=== PATIENT | female | born 1960 | race Caucasian/White ===

== ENCOUNTER 2020-06-22 14:00 | Emergency (ER) | payer SELFPAY ==
[2020-06-22 14:06] VITALS: BP 139/86; PULSE 81; RESP 18; TEMP 36.4; O2SAT 99; BMI 29.5
--- NOTE | 2020-06-22 14:45 | ED_ITS ---
HPI - General Adult General: Chief complaint: General Medical Stated complaint: MOVING LUMP IN LEG Time Seen by Provider: 06/22/20 14:26 History of Present Illness: HPI narrative: This patient is a 59-year-old female who presents today with foot pain. She said she has chronic foot pain but this is something new or different. Yesterday she did a lot of gardening but did not think it was enough to cause her typical foot pain. She woke up during the night about 230 and noted pain and a lump on the medial aspect of her midfoot. She went back to sleep and when she woke up in the morning it was still there and quite painful. She was up on her feet doing some cooking this morning. When she sat down took her shoes off she realized that the swelling had moved up her foot and was now more near her malleolus. She called urgent care and they told her to come to the ER to make sure it was not a blood clot. She does have family history of atherosclerotic disease. Onset (ago): hour(s) (12) Location: left and lower extremity Severity: moderate Quality: burning Pain Consistency: constant Relieving factors: none Exacerbating factors: movement Associated symptoms: Deny dyspnea Review of Systems Resp: Denies: dyspnea GI: Denies: abdominal pain Musc: Reports: extremity pain Neuro: Denies: weakness in extremities PFSH ED PFSH: Social History (Updated 06/22/20 @ 14:12 by Deb Amaro RN) Smoking and tobacco status: never smoked Alcohol intake: never Substance/Drug Use: never Adopted: Yes Physical Exam Const: COMMON NORMALS: no acute distress, patient oriented x3, no limitations and alert GENERAL APPEARANCE: cooperative and comfortable HENMT: HEAD & SCALP: normal to inspection FACE & SINUS: normal facial exam Eye: GENERAL EYE: appearance normal, both eyes and all related structures Neck/C-Spine: COMMON NORMALS: supple and no meningeal signs Chest: COMMONS NORMALS: normal inspection of the chest Resp: COMMON NORMALS: normal respiratory effort and No use of accessory muscles Back/Pelvis: COMMON NORMALS: thoracic and lumbar spine normal to inspection Extremity: GENERAL: Yes normal exam except as noted LEFT LOWER EXTREMITY: Yes foot & digits (There is a tender swollen area below the medial malleolus on the medial surface. There is no heat or redness. The swelling seems to track over the course of the tendons in that area.) Neuro: COMMON NORMALS: patient oriented x3, moves all extremities, no focal motor deficits and no sensory deficits noted SENSORIUM/ORIENTATION: Yes alert MENINGEAL SIGNS: Yes no meningeal signs Psych: COMMON NORMALS: mental status grossly normal, cooperative and normal affect Skin: COMMON NORMALS: no rashes or lesions noted and turgor normal GENERAL SKIN EXAM: no rashes or lesions noted and turgor normal Course ED course: Patient is concerned that this could be a blood clot. I reassured her that this would really not be a place where she could develop a blood clot that would cause that type of swelling and tenderness. I think she may have tendinitis in that area and I recommended ibuprofen and Naprosyn. She said those upset her stomach but we talked about ways to control that. If not she can use Tylenol. We will give her referral to Dr. Cadena. Can have her stay off the foot as much as she needs to to control the pain and to ice, elevate, rest. Vital Signs: Vital signs: Vital Signs Temperature 97.5 F L 06/22/20 14:06 Pulse Rate 81 06/22/20 14:06 Respiratory Rate 18 06/22/20 14:06 Blood Pressure 139/86 06/22/20 14:06 Pulse Oximetry 99 06/22/20 14:06 Discharge Plan Discharge Patient Disposition: Home Clinical Impression: Foot pain, left, Tendinitis of ankle or foot Condition: Stable Prescriptions: No Action Glucosamine 500 mg Tablet 500 mg PO DAILY RF: 0 Vitamin C 500 mg Tablet 500 mg PO DAILY RF: 0 ginseng 250 mg Capsule 250 mg PO DAILY RF: 0 Discharge Orders: Discharge Order (Routine); Ordered 06/22/20 Ordered By: Rose Gong Referrals: Gerardo Cadena DPM [Physician] - 4-7 days Discharge Diet: Usual diet Discharge Activity: Limit activity as instructed Patient Instructions: Tendinitis (ED) Activity Restrictions/Additional Instructions: Ibuprofen or naproxen will help with the swelling and pain in your foot. If you take them with food, and/or also take prilosec daily while on those medicines, a short course should not irritate your stomach too much. Limit activity - meaning ambulate only when your are not having pain. Otherwise, rest, ice and elevate. Follow up with Dr. Cadena for further management. Coding Level of Care Code ED Conservation Or Heritage Architect for Gary Diez
[2020-06-22 15:10] VITALS: BP 149/96; RESP 18; O2SAT 97
--- NOTE | 2020-06-23 12:43 | DCPLANNER ---
Addendum entered by Pratima Brown 06/23/20 13:43: Pat from ortho called piano case maker stating that she was unable to reach patient about appointment information. manager multimedia called patient, spoke with patient about the follow up appointment. Patient stated that she does not have insurance, she is not going to the appointment, she does not have transportation. manager multimedia told patient that piano case maker would cancel the appointment. manager multimedia called the ortho clinic, spoke with Pat and cancelled the appointment. Original Note: manager multimedia had message to schedule a follow up appointment for patient with ortho. manager multimedia called the ortho clinic spoke with Pat, gave clinic patients information. manager multimedia was told that patients information would be printed and reviewed. Clinic will call patient with appointment information.
== END 2020-06-22 15:13 | disposition home or self-care (01) ==
PROVIDERS: Emergency Provider Emergency Medicine
DX: M77.9 Enthesopathy, unspecified (principal)
CPT/HCPCS: 12345; 99281

== ENCOUNTER 2021-06-03 14:51 | Emergency (ER) | payer MEDICAID, SELFPAY ==
[2021-06-03 15:11] VITALS: BP 147/114; PULSE 83; RESP 15; TEMP 37; O2SAT 98; BMI 26.6
--- NOTE | 2021-06-03 17:45 | XRR_ITS ---
PROCEDURE INFORMATION: Exam: XR Chest Exam date and time: 06/03/2021 5:45 PM Age: 60 years old Clinical indication: Shortness of breath; Additional info: SOB TECHNIQUE: Imaging protocol: XR of the chest. Views: 1 view. COMPARISON: CT abdomen pelvis wo con [id number] 09/09/2019 7:05 PM FINDINGS: Lungs: Focal airspace opacity with irregular margins right lateral lung base. Symmetric, unremarkable lung volumes. Pleural spaces: Unremarkable. No pleural effusion. No pneumothorax. Heart/Mediastinum: Unremarkable. No cardiomegaly. Bones/joints: Unremarkable. XR/XR chest 1V portable [id number] IMPRESSION: Patchy nonspecific airspace lesion in the posterolateral right lower lobe. This may represent pneumonia, but given the focality radiographic follow-up should be performed to document resolution.
--- NOTE | 2021-06-03 18:18 | ED_ITS ---
HPI - COVID General: Chief Complaint: COVID symptoms Stated Complaint: diff breathing Time Seen by Provider: 06/03/21 18:18 Triage information: Has fever, cough or shortness of breath . Exposure to COVID + person last 14 days History of Present Illness: HPI Narrative: Patient states that she has had Covid symptoms for the last 9 days. She is not been tested. Patient said she had a Covid a month before Covid was officially here over a year ago. Patient said she has had fever chills body aches and shortness of breath. Patient also states that that she has a history of kidney infection started on Bactrim on Sunday called in by their clinic and she feels it could either be Covid or kidney infection. She says she has a history of kidney disease. MD complaint: has COVID symptoms Prior covid testing: no COVID 19 common symptoms: positive fever(s), chills, cough, dyspnea and body aches; negative headache(s), throat pain, nasal congestion, nausea or vomiting COVID 19 other sytmptoms: negative chest pain Onset (ago): day(s) (9) Severity: mild Treatment prior to arrival: other (Patient is on Bactrim) COVID Results: SARS-CoV-2 Antigen (Rapid) Negative (Negative) 06/03/21 18:46 06/03/21 Review of Systems Const: Reports: fever(s), chills and body aches Eyes: Denies: change in vision or blurry vision ENMT: Denies: throat pain or nasal congestion Card: Denies: chest pain or dyspnea on exertion Resp: Reports: dyspnea GI: Denies: abdominal pain, nausea or vomiting : Reports: flank pain, urinary frequency, urinary urgency, urinary hesitancy and dribbling Musc: Denies: extremity pain Skin/Breast: Denies: rash Neuro: Denies: headache(s) Psych: Denies: anxiety or depression Ben/Lymph: Denies: easy bruising PFS ED PFSH: Social History (Updated 06/22/20 @ 14:12 by Deb Amaro RN) Smoking and tobacco status: never smoked Alcohol intake: never Adopted: Yes Physical Exam Const: COMMON NORMALS: no acute distress Resp: COMMON NORMALS: normal respiratory effort, No retractions and No use of accessory muscles EFFORT & INSPECTION: Yes able to speak in complete sentences Psych: COMMON NORMALS: mental status grossly normal Course Vital Signs: Vital signs: Vital Signs Temperature 98.6 F 06/03/21 15:11 Pulse Rate 87 06/03/21 18:45 Respiratory Rate 18 06/03/21 18:45 Blood Pressure 146/79 06/03/21 18:45 Pulse Oximetry 97 06/03/21 18:49 MDM - COVID MDM Narrative: Medical decision making narrative: Discussed lab and radiology findings with patient. Patient agrees to follow-up at [facility] this coming week and repeat chest x-ray and urine. Lab Data: Labs: Lab Results 06/03/21 06/03/21 Range/Units 18:46 18:57 Urine Color Yellow (Yellow) Urine Appearance Hazy A (CLEAR) Urine pH 5 (5-7) Ur Specific Gravit y 1.025 (1.005-1.030) Urine Protein Neg (Negative) Urine Glucose (UA) Norm (Normal) Urine Ketones 1+ H (Negative) Urine Blood 2+ H (Negative) Urine Nitrate Negative (Negative) Urine Bilirubin 1+ H (Negative) Urine Urobilinogen 1 H (Negative) mg/dL Ur Leukocyte Bharti ase 1+ H (Negative) Urine RBC 0-4 H (0-2) /hpf Urine WBC 15-25 H (0-5) /hpf Ur Squamous Epith Cells 25-40 H (0-5) /hpf Amorphous Sediment Not Reportable Urine Bacteria 2+ H (NONE) /hpf SARS-CoV-2 Ag (Rap id) Negative (Negative) COVID Results: SARS-CoV-2 Antigen (Rapid) Negative (Negative) 06/03/21 18:46 06/03/21 Discharge Plan Discharge Patient Disposition: Home Clinical Impression: Abnormal x-ray UTI (urinary tract infection) Qualifiers: Urinary tract infection type: acute cystitis Hematuria presence: with hematuria Qualified Code(s): N30.01 - Acute cystitis with hematuria Condition: Stable Prescriptions: New Zithromax Z-Umesh 250 mg tablet See Rx Instructions .ROUTE .COMPLEX Qty: 6 RF: 0 No Action glucosamine sulfate [Glucosamine] 500 mg Tablet 500 mg PO DAILY RF: 0 ascorbic acid (vitamin C) [Vitamin C] 500 mg Tablet 500 mg PO DAILY RF: 0 Bactrim DS 800-160 mg Tablet 1 tab PO BID RF: 0 Discharge Orders: Discharge ED (Routine); Ordered 06/03/21 Ordered By: Baltazar Gabriel Referrals: Marco Pleitez FNP [Primary Care Provider] - Discharge Diet: Usual diet Discharge Activity: Resume usual activity Patient Instructions: Urinary Tract Infection in Women (ED) Activity Restrictions/Additional Instructions: Follow-up with medical provider as directed. Take medications as prescribed. Return to the ER or your medical provider if condition worsens. Please read and understand discharge instructions. If any questions ask please. Follow-up next week at [facility] in [place] and get a chest x- ray repeated and urinalysis repeated. Coding Level of Care Code ED Government Clerk for Gary Fwd Exam Expanded Problem Focused
[2021-06-03 18:45] VITALS: BP 146/79; PULSE 87; RESP 18; O2SAT 97
[2021-06-03 18:49] VITALS: O2SAT 97
[2021-06-03 19:00] VITALS: BP 135/81; PULSE 90; RESP 18; O2SAT 95
[2021-06-03 19:12] LABS: SARS Covid-2 Antigen Negative (Negative)
[2021-06-03 19:32] LABS: Specific Gravity, Urine 1.025 (1.005-1.030); Urine Appearance Hazy (CLEAR); Urine Color Yellow (Yellow); pH Urine 5 (5-7)
[2021-06-03 19:33] LABS: Add Urine Microscopic? YES; Bilirubin Urine 1+ (Negative); Blood Urine 2+ (Negative); Glucose Urine UA Norm (Normal); Ketones Urine 1+ (Negative); Leukocyte Esterase Urine 1+ (Negative); Nitrate Urine Negative (Negative); Protein Urine Neg (Negative); RBC Urine 0-4 /hpf (0-2); Squamous Epithelial Cell Urine 25-40 /hpf (0-5); Urobilinogen Urine 1 mg/dL (Negative); WBC Urine 15-25 /hpf (0-5)
[2021-06-03 19:34] LABS: Add Urine Culture? No; Bacteria Urine 2+ /hpf
[2021-06-03] MEDS: azithromycin 250 mg Tablet 500 MG PO (19:34)
[2021-06-03 20:00] VITALS: BP 118/76; PULSE 86; RESP 18; O2SAT 97
== END 2021-06-03 21:00 | disposition home or self-care (01) ==
PROVIDERS: Emergency Provider Nurse Practitioner Family; PCP Nurse Practitioner
DX: N30.01 Acute cystitis with hematuria (principal); R93.89 Abnormal findings on diagnostic imaging of other specified body structures; Z20.822 Contact with and (suspected) exposure to COVID-19
CPT/HCPCS: 71045; 81001; 87426; 99283; Q0144

== ENCOUNTER → 2021-10-28 16:24 | Outpatient (BNVA) | payer MEDICAID, SELFPAY | PROVIDERS: PCP Nurse Practitioner; Visit Provider Registered Nurse Neonatal Intensive Care | DX: Z20.822 Contact with and (suspected) exposure to COVID-19 (principal) | CPT/HCPCS: 87635 ==

== ENCOUNTER 2022-08-15 16:17 | Observation (INO) | payer BC, MEDICAID, SELFPAY ==
[2022-08-15] VITALS (10 sets, daily range): BP systolic 145–186; BP diastolic 75–103; PULSE 65–78; RESP 13–29; TEMP 36.5; O2SAT 94–99; BMI 29.5
--- NOTE | 2022-08-15 16:19 | XRR_ITS ---
PROCEDURE INFORMATION: Exam: XR Chest Exam date and time: 08/15/2022 4:28 PM Age: 61 years old Clinical indication: Pain; On breathing; Additional info: Chest pain SOB. HX pneumonia TECHNIQUE: Imaging protocol: Radiologic exam of the chest. Views: 1 view. COMPARISON: CR (CHEST, ) 06/03/2021 6:14 PM FINDINGS: Lungs: Unremarkable. No consolidation. Pleural spaces: Unremarkable. No pleural effusion. No pneumothorax. Heart/Mediastinum: Unremarkable. No cardiomegaly. Bones/joints: Unremarkable. XR/XR chest 1V portable [id number] IMPRESSION: No acute findings.
--- NOTE | 2022-08-15 16:19 | ECG_ITS ---
[facility] Test Date: 2022-08-15 Pat Name: Sandra Aparicio Department: Room: Gender: Female Spanish Interpreter: : 1960 Requested By: Randall Martinez Order Number: [id number] Satish MD: Sarai Dillon M.D. Measurements Intervals [place] Rate: 64 P: 38 VA: 187 QRS: 51 QRSD: 90 T: 54 QT: 394 QTc: 407 Interpretive Statements SINUS RHYTHM No previous ECG available for comparison Electronically Signed On 08-16-2022 6:02:32 CDT by Sarai Dillon M.D. [id number]
--- NOTE | 2022-08-15 16:29 | W.ED.CHESTPA ---
HPI - Chest Pain General: Chief Complaint: Chest Pain Stated Complaint: CHEST PAIN Time Seen by Provider: 08/15/22 16:19 Source: patient Mode of arrival: ambulatory Limitations: no limitations History of Present Illness: 61-year-old female who presents emergency room with complaint of chest pain. Pain radiates from her back into her chest she has had this for the last 2 weeks today she had a syncopal-like episode associated with it. She did not have anything that seems to exacerbate or relieve it. She states at times when it is worse that she feels like she cannot breathe. No history of known coronary disease no previous stress testing or angiogram. Patient has osteoarthritis and reflux disease she does not smoke she is not diabetic. MD complaint: chest pain and chest heaviness Onset (ago): week(s) (2) Timing of current episode: episodic Prior episodes: Yes Onset: during rest Pain location: substernal Pain radiation: back Severity: moderate Quality: tightness, aching and heaviness Relieving factors: nothing Exacerbating factors: nothing Associated symptoms: Deny abdominal pain, diaphoresis, dyspnea, fever(s), leg edema, nausea, palpitations, sense of impending doom, syncope or vomiting Treatment prior to arrival: aspirin and nitroglycerin Review of Systems Const: Reports: fatigue and malaise; Denies: fever(s), chills or diaphoresis ENMT: Denies: throat pain, ear or mastoid pain, nasal discharge or nasal congestion Card: Reports: chest pain; Denies: palpitations or syncope Resp: Denies: dyspnea GI: Denies: abdominal pain, nausea or vomiting : Denies: flank pain, difficulty voiding, dysuria, urinary frequency or urinary urgency Skin/Breast: Denies: rash or pruritus PFSH ED PFSH: Medical History Angina at rest History of kidney stones Tooth abscess Surgical History History of hysterectomy History of knee surgery History of lithotripsy Social History Smoking and tobacco status: never smoked Alcohol intake: never Adopted: Yes Physical Exam Const: GENERAL APPEARANCE: cooperative and comfortable ORIENTATION/CONSCIOUSNESS: Yes awake, Yes oriented to person, Yes oriented to place and Yes oriented to time HENMT: COMMON NORMALS: normocephalic, atraumatic and hearing grossly normal bilaterally HEAD & SCALP: normocephalic and atraumatic Resp: COMMON NORMALS: normal respiratory effort, No retractions, No use of accessory muscles and clear to auscultation bilaterally AUSCULTATION: clear to auscultation bilaterally Cardio: COMMON NORMALS: regular rate, regular rhythm and No murmurs present (Cardio) RATE: regular rate RHYTHM: regular rhythm GI: COMMON NORMALS: Soft to palpation and No hepatosplenomegaly present AUSCULTATION: Yes normoactive bowel sounds PALPATION: Yes Soft to palpation, No Tenderness to palpation present (GI), No Guarding due to palpation present (GI) and Yes No hepatosplenomegaly present Extremity: COMMON NORMALS: normal to inspection, capillary refill normal, no clubbing, cyanosis or edema, no calf tenderness and no pedal edema Neuro: SENSORIUM/ORIENTATION: Yes oriented to person, Yes oriented to place and Yes oriented to time Skin: COMMON NORMALS: no rashes or lesions noted GENERAL SKIN EXAM: no rashes or lesions noted Course Vital Signs: Vital signs: Vital Signs Temperature 98.1 F 08/16/22 11:20 Pulse Rate 99 08/16/22 11:20 Respiratory Rate 20 H 08/16/22 11:20 Blood Pressure 134/90 08/16/22 11:20 Pulse Oximetry 96 08/16/22 11:20 Oxygen Delivery Me thod 08/16/22 11:15 MDM - Chest Pain Medical Decision Making Chest pain associated syncopal episodes. Troponins EKG unremarkable however symptoms at time presentation are concerning we will admit patient for further evaluation including stress testing. Medical Records I reviewed the patient's medical records. Lab Data I reviewed the patient's lab results. : 08/16/22 04:55 08/16/22 04:55 Radiology Impressions Chest X-Ray 08/15/22 16:19 IMPRESSION: No acute findings. Laboratory Results WBC 6.1 10^3/uL (4.0-10.0) 08/15/22 17:10 RBC 5.24 10^6/uL (4.1-5.3) 08/15/22 17:10 Hgb 14.2 g/dL (11.5-15.3) 08/15/22 17:10 Hct 46.5 % (37.0-47.0) 08/15/22 17:10 MCV 88.7 fl (81-99) 08/15/22 17:10 MCH 27.1 pg (28.0-34.0) L 08/15/22 17:10 MCHC 30.5 g/dL (30.0-36.0) 08/15/22 17:10 RDW 13.2 % (12.1-15.1) 08/15/22 17:10 Plt Count 206 10^3/cmm (130-400) 08/15/22 17:10 MPV 10.5 fL (7.4-10.4) H 08/15/22 17:10 Neut % (Auto) 50.0 % 08/15/22 17:10 Lymph % (Auto) 35.2 % 08/15/22 17:10 Garza % (Auto) 11.7 % 08/15/22 17:10 Eos % (Auto) 2.3 % 08/15/22 17:10 Baso % (Auto) 0.8 % 08/15/22 17:10 Neut # (Auto) 3.07 10^3/uL (1.8-7.7) 08/15/22 17:10 Lymph # (Auto) 2.2 10^3/uL (0.8-4.8) 08/15/22 17:10 Garza # (Auto) 0.7 10^3/uL (0.2-0.9) 08/15/22 17:10 Eos # (Auto) 0.1 10^3/uL (0.0-0.8) 08/15/22 17:10 Baso # (Auto) 0.1 10^3/uL (0.0-0.1) 08/15/22 17:10 Nucleated RBC % (auto) 0 % 08/15/22 17:10 Nucleated RBCs # 0.0 /100WBC 08/15/22 17:10 Sodium 136 mmol/L (136-145) 08/15/22 17:10 Potassium 4.5 mmol/L (3.5-5.1) 08/15/22 17:10 Chloride 103 mmol/L (98-107) 08/15/22 17:10 Carbon Dioxide 23 mmol/L (22-29) 08/15/22 17:10 Anion Gap 14.5 (5-19) 08/15/22 17:10 BUN 16 mg/dL (8-23) 08/15/22 17:10 Creatinine 1.0 mg/dL (0.5-0.9) H 08/15/22 17:10 GFR Calculation 56.2 mL/min (90-130) L 08/15/22 17:10 Glucose 100 mg/dL (65-115) 08/15/22 17:10 Estimat Average Glucose 108 08/15/22 17:10 Hemoglobin A1c 5.4 % (4.0-6.0) 08/15/22 17:10 Calculated Osmolality 283 mOsm/kg (285-295) L 08/15/22 17:10 Calcium 10.3 mg/dL (8.5-10.5) 08/15/22 17:10 Total Bilirubin 0.3 mg/dL (0.15-1.2) 08/15/22 17:10 AST 19 U/L (0-32) 08/15/22 17:10 ALT 16 U/L (0-33) 08/15/22 17:10 Alkaline Phosphatase 120 U/L (35-105) H 08/15/22 17:10 Troponin T Baseline 6 ng/L (0-10) 08/15/22 17:10 Total Protein 6.6 g/dL (6.6-8.7) 08/15/22 17:10 Albumin 3.7 g/dL (3.5-5.2) 08/15/22 17:10 Globulin 2.9 g/dL (1.3-4.6) 08/15/22 17:10 Discharge Plan Discharge Patient Disposition: Admitted As Inpatient Admit Provider: Tuyet Jones Clinical Impression: Unstable angina pectoris Condition: Stable Discharge Diet: Cardiac Discharge Activity: Increase activity as tolerated Coding Level of Care Code ED Digital Account Coordinator for Chg Fwd Exam Detailed
[2022-08-15 17:21] LABS: Basophils # 0.1 10^3/uL (0.0-0.1); Basophils % 0.8 %; Eosinophils # 0.1 10^3/uL (0.0-0.8); Eosinophils % 2.3 %; Hematocrit 46.5 % (37.0-47.0); Hemoglobin 14.2 g/dL (11.5-15.3); Lymphocytes # 2.2 10^3/uL (0.8-4.8); Lymphocytes % 35.2 %; Mean Corpuscular HGB Conc 30.5 g/dL (30.0-36.0); Mean Corpuscular Hemoglobin 27.1 pg (28.0-34.0); Mean Corpuscular Volume 88.7 fl (81-99); Mean Platelet Volume 10.5 fL (7.4-10.4); Monocytes # 0.7 10^3/uL (0.2-0.9); Monocytes % 11.7 %; Neutrophils # 3.07 10^3/uL (1.8-7.7); Nucleated Red Blood Cells % 0 %; Platelet Count 206 10^3/cmm (130-400); Red Blood Count 5.24 10^6/uL (4.1-5.3); Red Cell Distribution Width 13.2 % (12.1-15.1); White Blood Count 6.1 10^3/uL (4.0-10.0)
[2022-08-15 17:44] LABS: Troponin(5th) Baseline 6 ng/L (0-10)
[2022-08-15 18:13] LABS: Alanine Aminotransferase 16 U/L (0-33); Albumin Level 3.7 g/dL (3.5-5.2); Alkaline Phosphatase 120 U/L (35-105); Blood Urea Nitrogen 16 mg/dL (8-23); Calcium 10.3 mg/dL (8.5-10.5); Carbon Dioxide 23 mmol/L (22-29); Chloride 103 mmol/L (98-107); Globulin 2.9 g/dL (1.3-4.6); Glomerular Filtration Rate 56.2 mL/min (90-130); Glucose 100 mg/dL (65-115); Osmolality Calculated 283 mOsm/kg (285-295); Sodium 136 mmol/L (136-145); Total Bilirubin 0.3 mg/dL (0.15-1.2); Total Protein 6.6 g/dL (6.6-8.7)
[2022-08-15 18:16] LABS: Anion Gap 14.5 (5-19); Aspartate Amino Transferase 19 U/L (0-32); Potassium 4.5 mmol/L (3.5-5.1)
--- NOTE | 2022-08-15 18:19 | ECG_ITS ---
[facility] Test Date: 2022-08-15 Pat Name: Sandra Aparicio Department: Room: Gender: Female Transportation Inspector: : 1960 Requested By: Randall Martinez Order Number: [id number] Satish MD: Sarai Dillon M.D. Measurements Intervals [place] Rate: 63 P: 13 LA: 192 QRS: 49 QRSD: 95 T: 50 QT: 403 QTc: 414 Interpretive Statements SINUS RHYTHM Compared to ECG 08/15/2022 16:24:56 No significant changes Electronically Signed On 08-16-2022 6:08:42 CDT by Sarai Dillon M.D. [id number]
[2022-08-15] MEDS: nitroglycerin 1 gm/inch oint Pkt 0.5 INCH TOPICAL (19:02)
[2022-08-15 19:30] LABS: Troponin 5 2HR Delta 0 ABS# (0-10)
--- NOTE | 2022-08-15 20:07 | PM.HP ---
Providers/Chief Complaint Admitting Physician: Tuyet Jones MD Primary Care Provider: NIRAJ Short Chief Complaint: CHEST PAIN History of Present Illness Sandra Aparicio is a 61 year old female who presented to the hospital with chief complaint of chest pain and syncope. Patient is stating that today she was experiencing chest pain to the point that she experienced syncopal events. Patient is stating that she has been experiencing chest pain for 1 year she describing it that pressure-like sensation, yesterday she was with her friends eating lunch when she stood up and passed out. She is stating that her normal blood pressure is 70-60 at home, she has not experienced any seizure-like activities, nausea, vomiting. She does not have a PCP. She is describing her pain as pressure-like sensation radiating towards her back. No pleuritic nature of pain, no recent fever, she is denying diarrhea. Diagnostic work-up in the ER revealed normal sinus rhythm, troponin 6, I have requested carotid Doppler, echo and Lexiscan stress test for tomorrow morning Diagnostic work-up is unremarkable She is hemodynamically stable I have requested D-dimer, TSH and hemoglobin A1c level Patient history positive for GERD she has been on omeprazole for quite some time patient does endorse dysphagia to solid food Review of Systems Const: Denies: fever(s) Eyes: Denies: change in vision ENMT: Denies: throat pain Card: Reports: chest pain Resp: Denies: dyspnea GI: Reports: nausea : Denies: flank pain Musc: Denies: neck pain Skin/Breast: Denies: rash Neuro: Denies: headache(s) Psych: Denies: anxiety Endo: Denies: polyuria Ben/Lymph: Denies: easy bruising All/Imm: Denies: urticaria Medications/Allergies Home Medications Medication Instructions Recorded Confirmed Last Taken Type omeprazole 20 mg capsule,delayed 20 mg PO DAILY 10/28/21 08/15/22 08/15/22 History release Allergies Allergy/AdvReac Type Severity Reaction Status Date / Time iodine Allergy ALGY-Anaphy Verified 08/15/22 16:56 laxis Penicillins Allergy Unknown Verified 08/15/22 16:56 PFSH Acute PFSH: Medical History History of kidney stones Tooth abscess Surgical History History of hysterectomy History of knee surgery History of lithotripsy Social History Smoking and tobacco status: never smoked Alcohol intake: never Adopted: Yes Vitals/I&O/Wt Last Vital Signs Pulse 65 08/15/22 19:22 Resp 18 08/15/22 19:22 BP 186/75 08/15/22 19:22 Pulse Ox 97 08/15/22 19:22 Weight last 48 hrs Weight 90.718 kg Physical Exam Narrative: Awake and alert Hemodynamically stable, chest pain-free, no shortness of breath Currently on room air Awake and alert, nonfocal neuro exam Pleasant and cooperative Poor dental hygiene Euvolemic Abdomen soft EOMI, PERRLA Data : 08/16/22 04:55 08/16/22 04:55 A&P Assessment and plan (1) Angina at rest: Plan Unstable angina Patient is endorsing chest pain radiating towards her back She is hemodynamically stable Requested D-dimer, TSH N.p.o. after midnight Lexiscan stress test tomorrow morning She is hypertensive We will add lisinopril Full code For syncopal events we will request echo and carotid Doppler Full code DVT prophylaxis with Lovenox Attestations Medical Necessity Statement*: Anticipating discharge within 48 hours need work-up for unstable angina Time Spent in Patient Care: 40 Coding Level of Care Code Acute Loader Engineer for Sunilg Rg Diagnoses Angina at rest I20.8
--- NOTE | 2022-08-15 20:10 | USCV_ITS ---
Sandra Aparicio Age: 61 Gender: F : 1960 Exam Date: 08/15/2022 22:02 Ordering Phys: Tuyet Jones MD Technologist: AMY [place] [facility] [place]: syncope, chest pain, No history of cardiac intervention per patient. BP: 186 / 75 HR: 72 Rhythm: Sinus Technical Quality: Adequate MEASUREMENTS (Male / Female) Normal Values 2D ECHO LV Diastolic Diameter PLAX 4.2 cm 4.2 - 5.9 / 3.9 - 5.3 cm LV Systolic Diameter PLAX 2.9 cm IVS Diastolic Thickness 1.2 cm 0.6 - 1.0 / 0.6 - 0.9 cm IVS Systolic Thickness 1.6 cm LVPW Diastolic Thickness 1.4 cm 0.6 - 1.0 / 0.6 - 0.9 cm LVPW Systolic Thickness 1.5 cm LVOT Diameter 2.3 cm LV Ejection Fraction 2D Teich 60.4 % LV Ejection Fraction MOD 2C 71.8 % LV Ejection Fraction 2C AL 74.5 % LA Diameter 3.3 cm LA Width 4.0 cm LA Height 4.9 cm RA Width 2.5 cm RA Height 4.4 cm Aorta at Sinotubular Diameter 3.3 cm IVC Diameter 1.6 cm M-MODE Aortic Annulus Diameter 3.9 cm LA Ao Ratio MM 0.8 MV E Point Septal Separation 0.6 cm DOPPLER AV Peak Velocity 150.0 cm/s LVOT Peak Velocity 110.0 cm/s AV Area Cont Eq vti 2.7 cm squared AV Area Cont Eq pk 3.0 cm squared MV Area PHT 2.4 cm squared Mitral E to A Ratio 0.6 MV E' Velocity 31.5 cm/s Mitral E to MV E' Ratio 8.8 Mitral E to LV E' Lateral Ratio 11.9 Mitral E to LV E' Septal Ratio 7.1 TR Peak Velocity 243.0 cm/s TR Peak Gradient 23.6 mmHg TV Peak E Velocity 63.0 cm/s Right Atrial Pressure 5.0 mmHg Pulmonary Artery Systolic Pressu 28.6 mmHg PV Peak Velocity 87.0 cm/s RV Acceleration Time 0.1 s RV Ejection Time 0.3 s RV AcT/ET 0.4 FINDINGS Left Ventricle Left ventricle is normal in size. LV systolic function is normal with EF of 60 to 65%. No regional wall motion abnormalities are seen. Grade 1 diastolic dysfunction Right Ventricle Normal in size and function Right Atrium Normal in size Left Atrium Normal in size Mitral Valve Structurally normal mitral valve. No significant stenosis or regurgitation. Aortic Valve Structurally normal aortic valve. No significant stenosis or regurgitation. Tricuspid Valve Trace tricuspid regurgitation. Insufficient TR jet to calculate RVSP Pulmonic Valve Not well visualized Pericardium Normal Aorta Normal in size IVC IVC appears to be normal CONCLUSIONS LV systolic function is normal with EF of 60 to 65% Grade 1 diastolic dysfunction Trace tricuspid regurgitation. No comparison studies are available Seng Marie MD (Electronically Signed) Final Date: 16 August 2022 10:24 S
--- NOTE | 2022-08-15 20:12 | USCV_ITS ---
Sandra Aparicio Age: 61 Gender: F : 1960 Exam Date: 08/15/2022 21:32 Ordering Phys: Tuyet Jones MD Technologist: AMY Exam Location: [facility] [place] Indication: syncope, non-smoker, no DM, no history of CVA/TIA Risk Factors: syncope, non-smoker, no DM, no history of CVA/TIA Previous Vascular Surgery: None Right Brachial BP: / Left Brachial BP: / Right Left Velocity (cm/s) Spectral Plaque Velocity (cm/s) Spectral Plaque Syst/Diast Broadening Syst/Diast Broadening 90.40/ 10.10 None None Prox CCA 52.10 / 12.00 None None 84.90/ 17.60 None None Mid CCA 73.50 / 15.40 None None 77.20/ 23.20 None None Distal CCA 80.30 / 23.90 None None 64.40/ 15.10 Min Homo Prox ICA 69.20 / 17.10 Min Homo 64.40/ 13.10 Min Homo Mid ICA 54.70 / 20.50 Min Homo 67.70/ 21.00 Min None Distal ICA 66.70 / 23.10 Min None 65.70 Min None ECA 120.90 Min None 0.75 ICA/CCA 0.86 Antegrade Vertebral Antegrade 35.50/ 7.20 cm/s 32.50/ 9.40 cm/s Bi Subclavian Bi 86.30 102.5 0 CONCLUSIONS Right ICA stenosis <50%. Mild atheromatous plaque right carotid bulb/ICA. Left ICA stenosis <50%. Mild atheromatous plaque left carotid bulb/ICA. Normal antegrade Doppler flow noted in the right vertebral artery. Normal antegrade Doppler flow noted in the left vertebral artery. Dharmesh Mahoney MD (Electronically Signed) Final Date: 16 August 2022 12:00 S
[2022-08-15 20:45] LABS: Glucose Point of Care 99 mg/dL (70-110)
--- NOTE | 2022-08-15 21:16 | ECG_ITS ---
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 Measurements Intervals Rea Rate: 67 P: 1 IA: 201 QRS: 25 QRSD: 97 T: 27 QT: 389 QTc: 413 Interpretive Statements SINUS RHYTHM WITH OCCASIONAL SUPRAVENTRICULAR PREMATURE COMPLEXES SEPTAL MYOCARDIAL INFARCTION , OF INDETERMINATE AGE [40+ ms Q WAVE IN V1/V2] Compared to ECG 08/15/2022 18:41:43 Myocardial infarct finding now present Electronically Signed On 08-16-2022 6:08:04 CDT by Sarai Dillon M.D. [email or web address] [id number]
[2022-08-15] MEDS: lisinopril 10 mg Tablet PO (21:22)
[2022-08-15] MEDS: chlorthalidone 25 mg Tablet PO (21:22)
[2022-08-15] MEDS: temazepam 15 mg Capsule PO (21:22)
[2022-08-15] MEDS: hyDRALAzine 20 mg/mL INJ 1 mL 10 MG IVP (21:23)
[2022-08-15] MEDS: enoxaparin 40 mg/0.4 mL Syringe SUBCUT (21:26)
[2022-08-15 21:46] LABS: Vitamin B12 494 pg/mL (232-1245)
[2022-08-15 22:10] LABS: Estmated Average Glucose 108; Hemoglobin A1C 5.4 % (4.0-6.0)
[2022-08-15 23:10] LABS: D Dimer 0.68 ug/mIFEU (0-0.59)
[2022-08-15 23:20] LABS: Troponin 5 6HR Delta 0 ng/L (0-12)
[2022-08-16 00:13] VITALS: BP 119/79; PULSE 73; RESP 24; TEMP 36.3; O2SAT 92
[2022-08-16] MEDS: calcium carbonate 500 mg Chew Tablet 1000 MG PO (03:35)
[2022-08-16] MEDS: acetaminophen 500 mg Tablet PO (03:41)
[2022-08-16 04:00] VITALS: BP 131/75; PULSE 65; RESP 22; TEMP 36.6; O2SAT 92
[2022-08-16 05:01] LABS: Basophils # 0.1 10^3/uL (0.0-0.1); Basophils % 0.8 %; Eosinophils # 0.1 10^3/uL (0.0-0.8); Eosinophils % 1.3 %; Hemoglobin 15.1 g/dL (11.5-15.3); Lymphocytes # 1.8 10^3/uL (0.8-4.8); Lymphocytes % 28.9 %; Mean Corpuscular HGB Conc 31.5 g/dL (30.0-36.0); Mean Corpuscular Hemoglobin 26.9 pg (28.0-34.0); Mean Corpuscular Volume 85.4 fl (81-99); Monocytes # 0.6 10^3/uL (0.2-0.9); Monocytes % 10.3 %; Neutrophils # 3.65 10^3/uL (1.8-7.7); Neutrophils % 58.5 %; Nucleated Red Blood Cells % 0 %; Platelet Count 227 10^3/cmm (130-400); Red Blood Count 5.62 10^6/uL (4.1-5.3); Red Cell Distribution Width 13.3 % (12.1-15.1); White Blood Count 6.2 10^3/uL (4.0-10.0)
[2022-08-16 05:19] LABS: Anion Gap 15.4 (5-19); Blood Urea Nitrogen 11 mg/dL (8-23); Calcium 10.6 mg/dL (8.5-10.5); Carbon Dioxide 25 mmol/L (22-29); Chloride 104 mmol/L (98-107); Creatinine Clr Calc Pharmacy 87.4875; Glomerular Filtration Rate 72.7 mL/min (90-130); Glucose 121 mg/dL (65-115); Osmolality Calculated 291 mOsm/kg (285-295); Potassium 4.4 mmol/L (3.5-5.1); Sodium 140 mmol/L (136-145)
[2022-08-16 05:20] LABS: Magnesium 2.1 mg/dL (1.7-2.3)
[2022-08-16 05:34] VITALS: PULSE 72
--- NOTE | 2022-08-16 06:18 | ECG_ITS ---
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 Interpretive Statements NAME OF STUDY: LEXISCAN SESTAMIBI STRESS TEST INDICATION: [ua] Procedure: At the baseline, the blood pressure was 162/95 mmHg with a heart rate of 76 bpm. The electrocardiogram showed normal sinus rhythm, normal axis with normal ST and T's. The Lexiscan was infused over a period of 20 seconds. A total of 0.4 mg of Lexiscan was infused. The stress phase was continued for a total of 5 minutes. Heart rate was at the end of stress phase was 108 bpm and a blood pressure of 138/84 mmHg. The EKG at the peak infusion revealed normal sinus rhythm with no significant ST-T wave changes. Occasional PVCs were seen Sestamibi was injected 20 seconds after the Lexiscan infusion. Blood pressure at the end of recovery phase was 149/98 mmHg with a heart rate of 93 bpm. Conclusion: 1. Normal EKG response to Lexiscan infusion 2. No Lexiscan induced chest pain or cardiac arrhythmia. 3. Normal blood pressure and heart rate response. 4. Sestamibi/sestamibi perfusion scan pending; see separate report. Electronically Signed On 08-26-2022 21:00:40 CDT by Seng Marie M.D. [id number]
[2022-08-16 06:19] LABS: Glucose Point of Care 120 mg/dL (70-110)
[2022-08-16] MEDS: regadenoson 0.4 Mg/5 ml Syringe IVP (07:42)
[2022-08-16 09:00] VITALS: BP 149/98; PULSE 95
[2022-08-16] MEDS: pantoprazole DR 40 mg Tablet PO (09:25)
[2022-08-16] MEDS: sennosides-docusate Tablet 1 TAB PO (09:25)
[2022-08-16] MEDS: lisinopril 10 mg Tablet PO (09:25)
[2022-08-16] MEDS: chlorthalidone 25 mg Tablet PO (09:25)
--- NOTE | 2022-08-16 10:19 | P.DS_ITS ---
Discharge Providers Date of Admission: 08/15/22 18:08 Date of Discharge: August 16, 2022 Attending Provider at Admission: Tuyet Jones MD Attending Provider at Discharge: Tuyet Jones MD Primary Care Provider: NIRAJ Short Diagnoses at Discharge Discharge Diagnosis (1) Angina at rest: Status: Acute Reason for Visit Reason for Visit: CHEST PAIN Hospital Course Hospital Course Patient was admitted for evaluation of chest pain, stress test has been unremarkable, patient remained hypertensive, stage I, no signs of orthostasis or severe hypotension. She has remained hemodynamically stable, D-dimer is unremarkable, I do believe her symptoms are related to her history of GERD with metaplasia we will give her Protonix and sucralfate I did recommend her to undergo EGD after talking with her PCP. We will set up a PCP for her. Will add lisinopril, Protonix, sucralfate, chlorthalidone Physical Exam Narrative: Awake and alert Chest pain-free S1, S2 Abdomen soft Nonfocal neuro exam Discharge Data Studies Completed and Pending Completed Studies During Hospitalization Category Date Time Status Sestamibi Stress Test Request Routine Exams 08/16/22 06:18 Draft XR chest 1V portable [id number] Stat Exams 08/15/22 16:19 Completed NM nina perf SPECT r/s* [id number] Routine Nuc Med 08/16/22 20:11 Completed Pending at discharge Category Date Time Status Sestamibi Stress Test Request Routine Exams 08/15/22 20:11 Stop Req CV carotid duplex BI* [id number] Routine Ultrasound 08/15/22 20:12 Taken CV. echo complete* [id number] Routine Ultrasound 08/15/22 20:10 Taken Radiology Impressions Chest X-Ray 08/15/22 16:19 IMPRESSION: No acute findings. Laboratory Results WBC 6.2 10^3/uL (4.0-10.0) 08/16/22 04:55 RBC 5.62 10^6/uL (4.1-5.3) H 08/16/22 04:55 Hgb 15.1 g/dL (11.5-15.3) 08/16/22 04:55 Hct 48.0 % (37.0-47.0) H 08/16/22 04:55 MCV 85.4 fl (81-99) 08/16/22 04:55 MCH 26.9 pg (28.0-34.0) L 08/16/22 04:55 MCHC 31.5 g/dL (30.0-36.0) 08/16/22 04:55 RDW 13.3 % (12.1-15.1) 08/16/22 04:55 Plt Count 227 10^3/cmm (130-400) 08/16/22 04:55 MPV 10.0 fL (7.4-10.4) 08/16/22 04:55 Neut % (Auto) 58.5 % 08/16/22 04:55 Lymph % (Auto) 28.9 % 08/16/22 04:55 Stanley % (Auto) 10.3 % 08/16/22 04:55 Eos % (Auto) 1.3 % 08/16/22 04:55 Baso % (Auto) 0.8 % 08/16/22 04:55 Neut # (Auto) 3.65 10^3/uL (1.8-7.7) 08/16/22 04:55 Lymph # (Auto) 1.8 10^3/uL (0.8-4.8) 08/16/22 04:55 Stanley # (Auto) 0.6 10^3/uL (0.2-0.9) 08/16/22 04:55 Eos # (Auto) 0.1 10^3/uL (0.0-0.8) 08/16/22 04:55 Baso # (Auto) 0.1 10^3/uL (0.0-0.1) 08/16/22 04:55 Nucleated RBC % (auto) 0 % 08/16/22 04:55 Nucleated RBCs # 0.0 /100WBC 08/16/22 04:55 D-Dimer 0.68 ug/mIFEU (0-0.59) H 08/15/22 22:42 Sodium 140 mmol/L (136-145) 08/16/22 04:55 Potassium 4.4 mmol/L (3.5-5.1) 08/16/22 04:55 Chloride 104 mmol/L (98-107) 08/16/22 04:55 Carbon Dioxide 25 mmol/L (22-29) 08/16/22 04:55 Anion Gap 15.4 (5-19) 08/16/22 04:55 BUN 11 mg/dL (8-23) 08/16/22 04:55 Creatinine 0.8 mg/dL (0.5-0.9) 08/16/22 04:55 GFR Calculation 72.7 mL/min (90-130) L 08/16/22 04:55 Glucose 121 mg/dL (65-115) H 08/16/22 04:55 POC Glucose 120 mg/dL (70-110) H 08/16/22 06:01 Estimat Average Glucose 108 08/15/22 17:10 Hemoglobin A1c 5.4 % (4.0-6.0) 08/15/22 17:10 Calculated Osmolality 291 mOsm/kg (285-295) 08/16/22 04:55 Calcium 10.6 mg/dL (8.5-10.5) H 08/16/22 04:55 Magnesium 2.1 mg/dL (1.7-2.3) 08/16/22 04:55 Total Bilirubin 0.3 mg/dL (0.15-1.2) 08/15/22 17:10 AST 19 U/L (0-32) 08/15/22 17:10 ALT 16 U/L (0-33) 08/15/22 17:10 Alkaline Phosphatase 120 U/L (35-105) H 08/15/22 17:10 Troponin T Baseline 6 ng/L (0-10) 08/15/22 17:10 Troponin T 120 Minute 6.00 ng/L (0-10) 08/15/22 18:51 Delta Troponin T 0 ABS# (0-10) 08/15/22 18:51 Troponin T Hi Sens 6Hr 6.00 ng/L (0-10) 08/15/22 22:42 Troponin T Hi Sens 6Hr Delta 0 ng/L (0-12) 08/15/22 22:42 Total Protein 6.6 g/dL (6.6-8.7) 08/15/22 17:10 Albumin 3.7 g/dL (3.5-5.2) 08/15/22 17:10 Globulin 2.9 g/dL (1.3-4.6) 08/15/22 17:10 Vitamin B12 494 pg/mL (232-1245) 08/15/22 18:51 TSH 2.40 uIU/mL (0.27-4.20) 08/15/22 18:51 Vitals Last Vital Signs Temp 97.8 F 08/16/22 04:00 Pulse 95 08/16/22 09:00 Resp 22 H 08/16/22 04:00 BP 149/98 08/16/22 09:00 Pulse Ox 92 08/16/22 04:00 O2 Del Method 08/15/22 21:30 Discharge Plan Discharge Patient Disposition: Home Condition: Stable Prescriptions: New pantoprazole [Protonix] 40 mg tablet,delayed release (DR/EC) 40 mg PO DAILY Qty: 90 1RF lisinopril 10 mg Tablet 10 mg PO DAILY Qty: 60 0RF chlorthalidone 25 mg Tablet 25 mg PO DAILY Qty: 60 3RF sucralfate 1 gram tablet 1 g PO BID 56 Days Qty: 112 0RF Discontinued omeprazole 20 mg capsule,delayed release(DR/EC) 20 mg PO DAILY Discharge Orders: Discharge Order (Routine); Ordered 08/16/22 Ordered By: Tuyet Jones Other Ambulatory Orders: MCT/Event Monitor 14 Days (Routine) Timeframe: 2 Weeks Facility: [facility] - Location: Radiology Ordered By: Tuyet Jones Referrals: Marco Pleitez, BIOFUELS MANAGER [Primary Care Provider] - 4-7 days Discharge Diet: Cardiac Discharge Activity: Increase activity as tolerated Patient Instructions: Opioid Safety Discharge Attestations Time Spent in Discharge Care*: less than 30 min Quality Metrics Clinical Quality Measures [ No reported AMI, CVA or VTE this stay] Coding Level of Care Code Acute Chg [facility] note Diagnoses Angina at rest I20.8
[2022-08-16 11:15] VITALS: BP 134/90; PULSE 99; RESP 20; TEMP 36.7; O2SAT 96
[2022-08-16 11:20] VITALS: BP 134/90; PULSE 99; RESP 20; TEMP 36.7; O2SAT 96
--- NOTE | 2022-08-16 11:20 | PC.NURSE ---
Discharge Note Patient discharged to home via private vehicle accompanied by friend. Discharge instructions reviewed with patient and/or advertising sales representative. Mobile pharmacy medications and/or prescriptions provided. Belongings/home medications returned.
--- NOTE | 2022-08-16 20:11 | NMCV_ITS ---
NM nina perf SPECT r/s* [id number] Sandra Aparicio Age: 61 Gender: F : 1960 Exam Date: 08/16/2022 06:56 Ordering Phys: Tuyet Jones MD Technologist: SARAHI Kumar Exam Location: [facility] Indications: CHEST PAIN STRESS TEST Please [facility] IMAGE PROTOCOL Rest/Stress 1 Lexiscan Day Radiopharmaceutical Dose (mCi) Administration Site Administered by Rest: Tc-99m 10.8 IV SARAHI Iniguez Sestamibi Stress:Tc-99m 32.8 IV SARAHI Iniguez Sestamibi Rest: 16-Aug-2022 60 Discovery 630 Stress: 16-Aug-2022 30 Discovery 630 0.4mg Lexiscan. Supine position only as patient was unable to lay prone. SPECT RESULTS Technical Quality: Excellent Raw Data Analysis: Normal Image Corrections: No attenuation or motion correction applied Summed Stress Score: 0 Summed Rest Score: 0 Summed Difference Score: 0 PERFUSION FINDINGS SPECT images demonstrate homogeneous tracer distribution throughout the myocardium. FUNCTIONAL RESULTS (calculated via Gated SPECT) Stress Image LV EF (%): 70 Stress EDV (mL):60 TID: 0.79 Stress ESV (mL):18 FUNCTIONAL FINDINGS: There is normal left ventricular systolic function. IMPRESSIONS 1. Normal myocardial perfusion imaging with no evidence of ischemia 2. LV systolic function is normal Seng Marie MD (Electronically Signed) Final Date: 16 August 2022 10:06 S
== END 2022-08-16 11:20 | disposition home or self-care (01) ==
LOC: ER 17:03 → MEDSURG 19:24
PROVIDERS: Admitting Provider Internal Medicine; Emergency Provider Family Medicine; PCP Nurse Practitioner; Visit Provider Internal Medicine
DX: I20.8 Other forms of angina pectoris (principal); I65.23 Occlusion and stenosis of bilateral carotid arteries; I10 Essential (primary) hypertension; K21.9 Gastro-esophageal reflux disease without esophagitis
CPT/HCPCS: 36415; 36416; 71045; 78452; 80048; 80053; 82607; 82962; 83036; 83735; 84443; 84484; 85025; 85378; 93005; 93017; 93306; 93880; 96361; 96374; 99285; A9500; G0378; J0360; J1650; J2785

== ENCOUNTER → 2022-09-18 10:05 | Outpatient (BNVA) | payer BC, MEDICAID, SELFPAY | PROVIDERS: PCP Family Medicine; Visit Provider Family Medicine | DX: I10 Essential (primary) hypertension (principal); R73.09 Other abnormal glucose; H26.9 Unspecified cataract; K21.9 Gastro-esophageal reflux disease without esophagitis; K22.70 Barrett's esophagus without dysplasia | CPT/HCPCS: 80053; 80061; 83036; 85025 ==

== ENCOUNTER 2022-12-04 01:39 | Emergency (ER) | payer BC, MEDICAID, SELFPAY ==
[2022-12-04 01:44] VITALS: BMI 29.5
[2022-12-04 01:47] VITALS: BP 149/108; PULSE 74; RESP 16; TEMP 36.6; O2SAT 97
--- NOTE | 2022-12-04 01:58 | XRR_ITS ---
PROCEDURE INFORMATION: Exam: XR Right Hip Exam date and time: 12/04/2022 2:07 AM Age: 61 years old Clinical indication: Hip pain; Right hip; Additional info: Pain, no injury TECHNIQUE: Imaging protocol: Radiologic exam of the Right hip. Views: 1 view hip with pelvis when performed. COMPARISON: CT abdomen pelvis wo con [id number] 09/09/2019 7:05 PM FINDINGS: Bones/joints: The osseous structures appear grossly intact. No evidence of acute fractures are identified. The right femoral head is contained within its acetabulum. No joint dislocation is identified. Minimal sclerosis along the superior acetabular margin. Suggestion of subtle osteopenia but this could be artifactual. Soft tissues: Unremarkable. XR/XR hip RT 2-3V wo/w pel* [id number] IMPRESSION: No evidence of acute osseous fracture or joint dislocation.
--- NOTE | 2022-12-04 01:58 | W.ED.EXTPRO ---
HPI - Extremity Problem General: Chief complaint: Extremity Problem,Nontraumatic Stated complaint: right leg pain Time Seen by Provider: 12/04/22 01:49 History of Present Illness: Patient comes in today for complaints of pain to the lateral hip for the last 2 to 3 days. Patient reports episodes of where she will be standing and have a sudden stabbing pain to the lateral part of her right hip. Patient denies any falls or injuries. Patient reports no redness or swelling to the hip area. Patient does report some discomfort to palpation. Patient admits to a history of sciatica. 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 Essential hypertension GERD (gastroesophageal reflux disease) History of kidney stones Tooth abscess Surgical History History of hysterectomy History of knee surgery History of lithotripsy Social History Smoking and tobacco status: never smoked Alcohol intake: never Adopted: Yes Physical Exam Const: COMMON NORMALS: alert HENMT: COMMON NORMALS: normocephalic HEAD & SCALP: normocephalic Neck/C-Spine: COMMON NORMALS: full ROM Resp: COMMON NORMALS: normal respiratory effort Cardio: COMMON NORMALS: regular rate RATE: regular rate Back/Pelvis: THORACIC SPINE/UPPER BACK: No thoracic spinal tenderness LUMBAR SPINE/LOWER BACK: Yes normal to inspection and No lumbar spinal tenderness Extremity: COMMON NORMALS: no pedal edema RIGHT LOWER EXTREMITY: Yes hip joint Right hip: Yes palpation (Lateral tenderness) and Yes ROM Neuro: SENSORIUM/ORIENTATION: Yes alert Skin: COMMON NORMALS: turgor normal GENERAL SKIN EXAM: turgor normal Course Vital Signs: Vital signs: Vital Signs Temperature 97.9 F 12/04/22 01:47 Pulse Rate 74 12/04/22 01:47 Respiratory Rate 16 12/04/22 01:47 Blood Pressure 149/108 12/04/22 01:47 Pulse Oximetry 97 12/04/22 01:47 Oxygen Delivery Me thod 12/04/22 01:47 MDM - Extremity (Nontraumatic) Medical Decision Making Patient comes in with pain to the right hip for the last 2 to 3 days. Patient reports that she will have stabbing pain into the right hip that starts in the lateral and goes into the groin. Patient appears nontoxic. Palpation of the lateral hip elicits pain. Normal range of motion is noted. Distal extremity has normal sensation and no edema. Differential diagnosis includes but not limited to tendinitis, arthritis, bursitis, sciatica. X-ray of the hip noted no acute injury and some mild degeneration. Recommended patient continue with routine medications try to maintain activity is much as possible. Use ice or heat to the area for further comfort. Patient was written for 7 tablets of hydrocodone for severe pain episodes. Patient reported understanding and agreed to plan. Discharge Plan Discharge Patient Disposition: Home Clinical Impression: Lateral pain of right hip Condition: Stable Prescriptions: New hydrocodone-acetaminophen 5-325 mg tablet 1 tab PO Q8H PRN (Reason: pain (scale score 7-10)) Qty: 7 0RF No Action pantoprazole [Protonix] 40 mg tablet,delayed release (DR/EC) 40 mg PO DAILY Qty: 90 1RF chlorthalidone 25 mg tablet 25 mg PO DAILY Qty: 60 3RF lisinopril 10 mg tablet See Rx Instructions .ROUTE .COMPLEX Qty: 90 1RF Dose Instruction: TAKE ONE TABLET BY MOUTH ONCE DAILY Rx Instructions: TAKE ONE TABLET BY MOUTH ONCE DAILY clindamycin HCl 150 mg capsule 450 mg PO TID 10 Days Qty: 90 0RF celecoxib [Celebrex] 200 mg capsule 200 mg PO DAILY Discharge Orders: Discharge ED (Routine); Ordered 12/04/22 Ordered By: Glenn Dodge Referrals: Lit Otero MD [Primary Care Provider] - Discharge Diet: Usual diet Discharge Activity: Increase activity as tolerated Patient Instructions: Hip Impingement (ED) Activity Restrictions/Additional Instructions: Activity as tolerated. Use ice or heat to the area for further comfort. Use Tylenol to control pain. Use hydrocodone for severe pain. Drink plenty of water with medication. Follow-up with primary care for further evaluation and recommendation of other treatment. Return to the ER for new concerns such as fever greater than 100.4, increasing redness and swelling to the hip area, or uncontrolled pain. Coding Level of Care Code ED Refrigeration Systems Installer for Sunil[employer] Fwd Exam Comprehensive
[2022-12-04] MEDS: dexamethasone 10 mg/mL INJ IM (02:08)
[2022-12-04] MEDS: ketorolac 30 mg/mL INJ IM (02:09)
[2022-12-04] MEDS: HYDROcodone-acetaminophen 5-325 mg Tablet 1 TAB PO (02:31)
== END 2022-12-04 02:33 | disposition home or self-care (01) ==
PROVIDERS: Emergency Provider Nurse Practitioner Family; PCP Family Medicine
DX: M25.551 Pain in right hip (principal); I10 Essential (primary) hypertension
CPT/HCPCS: 73502; 96372; 99283; J1100; J1885

== ENCOUNTER 2023-04-04 18:54 | Emergency (ER) | payer BC, MEDICAID, SELFPAY ==
--- NOTE | 2023-04-04 10:07 | ECG_ITS ---
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 Measurements Intervals [place] Rate: 77 P: -5 GA: 143 QRS: 67 QRSD: 92 T: 12 QT: 370 QTc: 420 Interpretive Statements SINUS RHYTHM WITH SINUS ARRHYTHMIA NONSPECIFIC T-WAVE ABNORMALITY Compared to ECG 08/15/2022 21:16:50 T-wave abnormality now present Myocardial infarct finding no longer present Electronically Signed On 04-07-2023 6:57:56 CDT by Sarai Dillon M.D. [id number]
[2023-04-04 19:34] VITALS: BP 130/87; PULSE 74; RESP 17; TEMP 36.4; O2SAT 97
[2023-04-04 19:56] LABS: Basophils # 0.1 10^3/uL (0.0-0.1); Eosinophils # 0.3 10^3/uL (0.0-0.8); Eosinophils % 3.5 %; Hematocrit 45.9 % (37.0-47.0); Lymphocytes # 2.5 10^3/uL (0.8-4.8); Lymphocytes % 34.5 %; Mean Corpuscular HGB Conc 30.5 g/dL (30.0-36.0); Mean Corpuscular Hemoglobin 26.8 pg (28.0-34.0); Mean Corpuscular Volume 87.8 fl (81-99); Mean Platelet Volume 10.3 fL (7.4-10.4); Monocytes # 0.8 10^3/uL (0.2-0.9); Monocytes % 10.6 %; Neutrophils # 3.67 10^3/uL (1.8-7.7); Nucleated Red Blood Cells % 0 %; Platelet Count 231 10^3/cmm (130-400); Red Blood Count 5.23 10^6/uL (4.1-5.3); Red Cell Distribution Width 13.6 % (12.1-15.1); White Blood Count 7.3 10^3/uL (4.0-10.0)
[2023-04-04 20:38] VITALS: BP 134/72; PULSE 69; RESP 18; O2SAT 99
[2023-04-04 20:46] LABS: Anion Gap 14.1 (5-19); Blood Urea Nitrogen 14 mg/dL (8-23); Carbon Dioxide 28 mmol/L (22-29); Chloride 101 mmol/L (98-107); Glomerular Filtration Rate 72.4 mL/min (90-130); Potassium 4.1 mmol/L (3.5-5.1); Sodium 139 mmol/L (136-145)
[2023-04-04 20:47] LABS: Alanine Aminotransferase 16 U/L (0-33); Alkaline Phosphatase 95 U/L (35-105); Aspartate Amino Transferase 16 U/L (0-32); Calcium 10.1 mg/dL (8.5-10.5); Globulin 3.2 g/dL (1.3-4.6); Glucose 103 mg/dL (65-115); Lipase 39 U/L (13-60); Osmolality Calculated 289 mOsm/kg (285-295); Total Bilirubin 0.3 mg/dL (0.15-1.2); Total Protein 7.2 g/dL (6.6-8.7)
[2023-04-04 22:00] VITALS: BP 147/66; PULSE 68; RESP 16; O2SAT 96
--- NOTE | 2023-04-04 22:37 | USR_ITS ---
PROCEDURE INFORMATION: Exam: US Abdomen, Limited; Right Upper Quadrant Exam date and time: 04/04/2023 11:33 PM Age: 62 years old Clinical indication: Abdominal pain; Epigastric; Patient HX: Prior US here 09/09/2019 showed cholelithiasis. Today normal tbili = 0.3, normal ast = 16, normal alt = 16, normal alkphos = 95, normal lipase = 39. ; Additional info: Abd pain TECHNIQUE: Imaging protocol: Real time ultrasound of the abdomen with image documentation. Limited exam focused on the right upper quadrant. COMPARISON: US gall bladder [id number] 09/09/2019 6:14 PM FINDINGS: Liver: Normal. No masses. Gallbladder: Cholelithiasis. Negative for gallbladder wall thickening. Negative for poor cholecystic fluid. Biliary ducts: Negative for dilation. Common bile duct diameter 5 mm. No focal intraluminal stones seen. Pancreas: Visualized pancreas is unremarkable. Right kidney: Atrophic right renal parenchyma. Negative for hydronephrosis. Lower pole echogenic shadowing nonobstructing stone measures 10 mm. Aorta: Abdominal aorta is nonaneurysmal. Inferior vena cava: Proximal IVC is normal diameter. Portal venous: Portal vein is patent with normal flow direction. Normal duplex waveform. Intraperitoneal space: Negative for intraperitoneal fluid collection. US/US gall bladder [id number] IMPRESSION: 1. Negative for biliary obstruction. 2. Cholelithiasis. No convincing secondary sonographic evidence of acute cholecystitis. 3. Non-obstructing right kidney stone.
--- NOTE | 2023-04-04 22:38 | ED_ITS ---
HPI - Abdominal Pain General: Chief Complaint: Abdominal Pain Stated Complaint: abdomen pain, nausea Time Seen by Provider: 04/04/23 22:29 Source: patient Mode of arrival: ambulatory Limitations: no limitations History of Present Illness: 62-year-old female states that she has been having epigastric and right upper quadrant pain anytime she eats over the last 3 to 4 days. States she had a large meal yesterday and was having severe pain 8 of biscuit this morning is having pain again. She does have a history of ulcers she does still have her gallbladder. States that her pains improved but she has not eaten tonight she denies any fevers had some nausea denies any vomiting or diarrhea. 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 Essential hypertension GERD (gastroesophageal reflux disease) History of kidney stones Tooth abscess Surgical History History of hysterectomy History of knee surgery History of lithotripsy Social History Smoking and tobacco status: never smoked Alcohol intake: current Alcohol intake frequency: few times a month Substance/Drug Use: never Adopted: Yes Lives independently: Yes Physical Exam Const: COMMON NORMALS: no acute distress, patient oriented x3 and healthy appearing HENMT: COMMON NORMALS: normocephalic and atraumatic HEAD & SCALP: normocephalic and atraumatic Eye: COMMON NORMALS: conjunctivae normal CONJUNCTIVA: Yes conjunctivae normal Neck/C-Spine: COMMON NORMALS: full ROM and supple Chest: COMMONS NORMALS: normal inspection of the chest and normal palpation of entire chest wall Resp: COMMON NORMALS: normal respiratory effort, No retractions, No use of accessory muscles and clear to auscultation bilaterally AUSCULTATION: clear to auscultation bilaterally Cardio: COMMON NORMALS: regular rate, regular rhythm and No murmurs present (Cardio) RATE: regular rate RHYTHM: regular rhythm GI: COMMON NORMALS: Normal to inspection, nondistended, normoactive bowel sounds present, Soft to palpation, non-tender and no masses PALPATION: Yes Soft to palpation Extremity: COMMON NORMALS: normal to inspection and full ROM Neuro: COMMON NORMALS: patient oriented x3, moves all extremities and no focal motor deficits Psych: COMMON NORMALS: mental status grossly normal, Normal thought process present and cooperative THOUGHT PROCESS: Normal thought process present Skin: COMMON NORMALS: no rashes or lesions noted and no wounds GENERAL SKIN EXAM: no rashes or lesions noted Course Vital Signs: Vital signs: Vital Signs Temperature 97.6 F 04/04/23 19:34 Pulse Rate 75 04/05/23 00:00 Respiratory Rate 14 04/05/23 00:00 Blood Pressure 135/70 04/05/23 00:00 Pulse Oximetry 97 04/05/23 00:00 Oxygen Delivery Me thod Room Air 04/05/23 00:00 MDM - Abdominal Pain Medical Decision Making Patient presents here with abdominal pain likely some biliary colic she does have gallstones no signs of cholecystitis we will start her on antibiotics along with pain meds we will get her follow-up with surgery she is return if worsening she understands agrees to plan her pain is improved here. Medical Records I reviewed the patient's medical records. Lab Data I reviewed the patient's lab results. 04/04/23 19:34 04/04/23 19:34 Labs/Radiology: Laboratory Results WBC 7.3 10^3/uL (4.0-10.0) 04/04/23 19:34 RBC 5.23 10^6/uL (4.1-5.3) 04/04/23 19:34 Hgb 14.0 g/dL (11.5-15.3) 04/04/23 19:34 Hct 45.9 % (37.0-47.0) 04/04/23 19:34 MCV 87.8 fl (81-99) 04/04/23 19:34 MCH 26.8 pg (28.0-34.0) L 04/04/23 19:34 MCHC 30.5 g/dL (30.0-36.0) 04/04/23 19:34 RDW 13.6 % (12.1-15.1) 04/04/23 19:34 Plt Count 231 10^3/cmm (130-400) 04/04/23 19:34 MPV 10.3 fL (7.4-10.4) 04/04/23 19:34 Neut % (Auto) 50.0 % 04/04/23 19:34 Lymph % (Auto) 34.5 % 04/04/23 19:34 [place] % (Auto) 10.6 % 04/04/23 19:34 Eos % (Auto) 3.5 % 04/04/23 19:34 Baso % (Auto) 1.0 % 04/04/23 19:34 Neut # (Auto) 3.67 10^3/uL (1.8-7.7) 04/04/23 19:34 Lymph # (Auto) 2.5 10^3/uL (0.8-4.8) 04/04/23 19:34 [place] # (Auto) 0.8 10^3/uL (0.2-0.9) 04/04/23 19:34 Eos # (Auto) 0.3 10^3/uL (0.0-0.8) 04/04/23 19:34 Baso # (Auto) 0.1 10^3/uL (0.0-0.1) 04/04/23 19:34 Nucleated RBC % (auto) 0 % 04/04/23 19:34 Nucleated RBCs # 0.0 /100WBC 04/04/23 19:34 Sodium 139 mmol/L (136-145) 04/04/23 19:34 Potassium 4.1 mmol/L (3.5-5.1) 04/04/23 19:34 Chloride 101 mmol/L (98-107) 04/04/23 19:34 Carbon Dioxide 28 mmol/L (22-29) 04/04/23 19:34 Anion Gap 14.1 (5-19) 04/04/23 19:34 BUN 14 mg/dL (8-23) 04/04/23 19:34 Creatinine 0.8 mg/dL (0.5-0.9) 04/04/23 19:34 GFR Calculation 72.4 mL/min (90-130) L 04/04/23 19:34 Glucose 103 mg/dL (65-115) 04/04/23 19:34 Calculated Osmolality 289 mOsm/kg (285-295) 04/04/23 19:34 Calcium 10.1 mg/dL (8.5-10.5) 04/04/23 19:34 Total Bilirubin 0.3 mg/dL (0.15-1.2) 04/04/23 19:34 AST 16 U/L (0-32) 04/04/23 19:34 ALT 16 U/L (0-33) 04/04/23 19:34 Alkaline Phosphatase 95 U/L (35-105) 04/04/23 19:34 Total Protein 7.2 g/dL (6.6-8.7) 04/04/23 19:34 Albumin 4.0 g/dL (3.5-5.2) 04/04/23 19:34 Globulin 3.2 g/dL (1.3-4.6) 04/04/23 19:34 Lipase 39 U/L (13-60) 04/04/23 19:34 Urine Color Yellow (Yellow) 04/04/23 22:43 Urine Appearance Clear (CLEAR) 04/04/23 22:43 Urine pH 7 (5-7) 04/04/23 22:43 Ur Specific [place] 1.015 (1.005-1.030) 04/04/23 22:43 Urine Protein Neg (Negative) 04/04/23 22:43 Urine Glucose (UA) Norm (Normal) 04/04/23 22:43 Urine Ketones Negative (Negative) 04/04/23 22:43 Urine Blood Neg (Negative) 04/04/23 22:43 Urine Nitrate Negative (Negative) 04/04/23 22:43 Urine Bilirubin Neg (Negative) 04/04/23 22:43 Urine Urobilinogen Neg mg/dL (Negative) 04/04/23 22:43 Ur Leukocyte Esterase 1+ (Negative) H 04/04/23 22:43 Urine RBC 0-4 /hpf (0-2) H 04/04/23 22:43 Urine WBC 5-10 /hpf (0-5) H 04/04/23 22:43 Ur Squamous Epith Cells 15-25 /hpf (0-5) H 04/04/23 22:43 Amorphous Sediment Not Reportable 04/04/23 22:43 Urine Bacteria 2+ /hpf (NONE) H 04/04/23 22:43 Urine Mucus 1+ /hpf 04/04/23 22:43 EKG Data EKG 1: I personally reviewed and interpreted this EKG as follows: EKG interpretation date: 04/04/23 EKG interpretation time: 19:56 Interpretation: nsr hr [address] or t wave abnormalities qrs 92 qtc 402 Discharge Plan Discharge Patient Disposition: Home Clinical Impression: Cholelithiasis, Biliary colic Condition: Stable Prescriptions: New hydrocodone-acetaminophen 5-325 mg tablet 1 tab PO Q6H PRN (Reason: pain) Qty: 14 0RF ondansetron 4 mg tablet,disintegrating 4 mg PO Q6H PRN (Reason: nausea and vomiting) Qty: 14 0RF levofloxacin 750 mg tablet 750 mg PO DAILY 5 Days Qty: 5 0RF No Action chlorthalidone 25 mg tablet 25 mg PO DAILY Qty: 60 3RF lisinopril 10 mg tablet See Rx Instructions .ROUTE .COMPLEX Qty: 90 1RF Dose Instruction: TAKE ONE TABLET BY MOUTH ONCE DAILY Rx Instructions: TAKE ONE TABLET BY MOUTH ONCE DAILY celecoxib [Celebrex] 200 mg capsule 200 mg PO DAILY omeprazole 20 mg capsule,delayed release(DR/EC) 20 mg PO DAILY pantoprazole [Protonix] 40 mg tablet,delayed release (DR/EC) 40 mg PO DAILY PRN gabapentin 100 mg capsule 200 mg PO DAILY Qty: 60 0RF Discharge Orders: Discharge ED (Routine); Ordered 04/05/23 Ordered By: Melvin Siddiqui Referrals: Win Lee DO [Physician] - 1-3 days Lit Otero MD [Primary Care Provider] - Discharge Diet: Advance as tolerated Discharge Activity: Resume usual activity Patient Instructions: Gallstones (ED), Abdominal Pain (ED), Opioid Safety Coding Level of Care Code ED Cold [employer] Operator for Chg Rg
[2023-04-04 23:00] VITALS: BP 125/72; PULSE 65; RESP 14; O2SAT 96
[2023-04-04 23:22] LABS: Add Urine Microscopic? YES; Bacteria Urine 2+ /hpf; Bilirubin Urine Neg (Negative); Blood Urine Neg (Negative); Glucose Urine UA Norm (Normal); Ketones Urine Negative (Negative); Leukocyte Esterase Urine 1+ (Negative); Nitrate Urine Negative (Negative); Protein Urine Neg (Negative); RBC Urine 0-4 /hpf (0-2); Specific Gravity, Urine 1.015 (1.005-1.030); Urine Appearance Clear (CLEAR); Urine Color Yellow (Yellow); Urobilinogen Urine Neg (Negative); pH Urine 7 (5-7)
[2023-04-04 23:23] LABS: Add Urine Culture? No; Mucus Urine 1+ /hpf; Squamous Epithelial Cell Urine 15-25 /hpf (0-5)
--- NOTE | 2023-04-04 23:59 | PC.NURSE ---
Patient refused Zofran and Gi cocktail. States that Zofran is like giving her water and she is allergic to cocktail. Unsure of what med she has reaction to. Provider notified.
[2023-04-05] VITALS: BP 135/70; PULSE 75; RESP 14; O2SAT 97
[2023-04-05 00:26] VITALS: PULSE 82; RESP 16; O2SAT 96
--- NOTE | 2023-04-05 07:33 | DCPLANNER ---
Addendum entered by Pratima Brown 04/06/23 11:21: manager system received the following message from general surgery regarding follow up appointment? Patient does not want to be seen.. Original Note: manager system had message to schedule a follow up appointment for patient with general surgery. manager system sent patients information to the front office staff at general surgery. Patients information will be printed and reviewed. Clinic will call patient with appointment information.
== END 2023-04-05 00:27 | disposition home or self-care (01) ==
PROVIDERS: Emergency Provider Emergency Medicine; PCP Family Medicine
DX: K80.20 Calculus of gallbladder without cholecystitis without obstruction (principal); I10 Essential (primary) hypertension
CPT/HCPCS: 36415; 76705; 80053; 81001; 83690; 85025; 93005; 96374; 99285

== ENCOUNTER → 2024-03-26 10:01 | Outpatient (BNVA) | payer BC, MEDICAID, SELFPAY | PROVIDERS: PCP Family Medicine; Visit Provider Nurse Practitioner Family | DX: R39.9 Unspecified symptoms and signs involving the genitourinary system (principal) | CPT/HCPCS: 81000 ==

== ENCOUNTER 2024-04-15 14:24 | Emergency (ER) | payer BC, MEDICAID, SELFPAY ==
--- NOTE | 2024-04-15 14:29 | ECG_ITS ---
[facility] Test Date: 2024-04-15 Pat Name: Sandra Aparicio Department: Room: Gender: Female [employer] Operator: : 1960 Requested By: Randall Martinez Order Number: [id number] Satish MD: Seng Marie M.D. Measurements Intervals [place] Rate: 89 P: 58 KS: 175 QRS: 89 QRSD: 91 T: -19 QT: 347 QTc: 422 Interpretive Statements SINUS RHYTHM NONSPECIFIC ST & T-WAVE ABNORMALITY Compared to ECG 04/04/2023 19:56:03 Sinus arrhythmia no longer present T-wave abnormality still present Electronically Signed On 04-15-2024 16:48:09 CDT by Seng Marie M.D. [id number]
[2024-04-15 14:30] VITALS: BP 120/69; PULSE 85; RESP 19; TEMP 36.4; O2SAT 99; BMI 31.4
--- NOTE | 2024-04-15 14:38 | CTR_ITS ---
PROCEDURE INFORMATION: Exam: CT Head Without Contrast Exam date and time: 04/15/2024 3:00 PM Age: 63 years old Clinical indication: Altered mental status/memory loss; Additional info: AMS TECHNIQUE: Imaging protocol: Computed tomography of the head without contrast. Radiation optimization: All CT scans at this facility use at least one of these dose optimization techniques: automated exposure control; mA and/or kV adjustment per patient size (includes targeted exams where dose is matched to clinical indication); or iterative reconstruction. COMPARISON: No relevant prior studies available. RADIATION DOSE METRICS: Total DLP (mGy-cm): 1005 FINDINGS: Brain: No intracranial hemorrhage. There is global parenchymal volume loss. Periventricular white matter hypoattenuation is nonspecific but most likely due to small vessel disease. No evidence of acute territorial infarct or cerebral edema. No mass effect or midline shift. Cerebral ventricles: Prominent ventricles likely secondary to volume loss. Paranasal sinuses: Mild sphenoid sinus mucosal thickening. Mastoid air cells: Visualized mastoid air cells are well aerated. Bones: Unremarkable. No acute fracture. Soft tissues: Unremarkable. CT/CT head wo con* [id number] IMPRESSION: No acute intracranial findings.
--- NOTE | 2024-04-15 14:38 | XR_ITS ---
WS: [id number] Exam: XR chest 1V portable [id number] Date/Time of Exam: 04/15/2024 2:44 PM Reason For Exam: dyspnea/cough Comparison 08/15/2022. The lungs are fully expanded and clear. Chronic changes in the RIGHT base. Normal cardiomediastinal s ilhouette. Regional bony elements are intact. No pleural effusions. XR/XR chest 1V portable [id number] IMPRESSION: 1. No acute cardiopulmonary finding. No change.
--- NOTE | 2024-04-15 14:40 | W.ED.DIZZY ---
Documented by User: Randall Roche DO 04/16/24 04:00 HPI - Dizziness General: Chief Complaint: Dizziness Stated Complaint: sob, about to pass out Time Seen by Provider: 04/15/24 14:37 Source: patient Mode of arrival: wheelchair History of Present Illness: HPI Narrative: 63-year-old female presents emergency room was very dizzy she felt like she was going to pass out when she first arrived here she was unable to answer questions triage staff brought her directly to her room when I came to see her she was more awake and alert. She remembers having seen me with her son in the past. She does not have any fevers sweats or chills recently she had some chest discomfort. She has some chronic right upper quadrant abdominal pain secondary to cholelithiasis but due to insurance issues and barriers has not been able to get her gallbladder out she has not had any vomiting or diarrhea but she has felt very nauseous. She had not felt well earlier today was driving back home from running an errand got lightheaded and dizzy had eaten and then had a recurrence of the episode and she actually passed out she does not recall what happened between the onset of those symptoms and now. She has previously been hospitalized for syncope. She is not having any chest pain or shortness of breath at this time. MD elicited complaint: dizziness and lightheadedness Associated symptoms: Denies chest pain or chills Review of Systems Const: Denies: fever(s) or chills Card: Denies: chest pain Resp: Denies: dyspnea GI: Denies: abdominal pain : Denies: dysuria, urinary frequency or urinary urgency Musc: Denies: neck pain or back pain Skin/Breast: Denies: rash PFSH ED PFSH: Medical History Cholelithiasis Tam esophagus Essential hypertension GERD (gastroesophageal reflux disease) Angina at rest History of kidney stones Tooth abscess Surgical History History of hysterectomy History of lithotripsy History of knee surgery Social History Smoking and tobacco/nicotine status: never used tobacco/nicotine Alcohol intake: current Alcohol intake frequency: few times a month Substance/Drug Use: never Adopted: Yes Lives independently: Yes Physical Exam Const: COMMON NORMALS: no acute distress GENERAL APPEARANCE: cooperative and comfortable ORIENTATION/CONSCIOUSNESS: Yes awake, Yes oriented to person, Yes oriented to place and Yes oriented to time HENMT: COMMON NORMALS: normocephalic, atraumatic and hearing grossly normal bilaterally HEAD & SCALP: normocephalic and atraumatic Resp: COMMON NORMALS: normal respiratory effort, No retractions, No use of accessory muscles and clear to auscultation bilaterally AUSCULTATION: clear to auscultation bilaterally Cardio: COMMON NORMALS: regular rate, regular rhythm and No murmurs present (Cardio) RATE: regular rate RHYTHM: regular rhythm GI: COMMON NORMALS: Soft to palpation and No hepatosplenomegaly present AUSCULTATION: Yes normoactive bowel sounds PALPATION: Yes Soft to palpation, No Tenderness to palpation present (GI), No Guarding due to palpation present (GI) and Yes No hepatosplenomegaly present Extremity: COMMON NORMALS: normal to inspection, capillary refill normal, no clubbing, cyanosis or edema, no calf tenderness and no pedal edema Neuro: SENSORIUM/ORIENTATION: Yes oriented to person, Yes oriented to place and Yes oriented to time Skin: COMMON NORMALS: no rashes or lesions noted GENERAL SKIN EXAM: no rashes or lesions noted Course Vital Signs: Vital signs: Vital Signs Temperature 97.6 F 04/15/24 14:30 Pulse Rate 80 04/15/24 18:28 Respiratory Rate 19 H 04/15/24 14:30 Blood Pressure 122/98 04/15/24 18:28 Pulse Oximetry 96 04/15/24 18:28 Oxygen Delivery Md thod Room Air 04/15/24 18:28 MDM - Dizziness Medical Decision Making Care signed out to Dr. Hamlin at change of shift. See final notes for diagnosis and disposition. Patient care was transitioned to ne at shift change. Patient has had a syncopal episode and weakness which has since resolved. Her second cardiac markers and her second EKG were pending. Cardiac markers remain negative. Her EKG shows no ischemic changes. EKG: Time 165 rate 63. Sinus rhythm with sinus arrhythmia, No ST-T changes, no ectopy, normal IN & QRS intervals, This was reviewed and interpreted by myself the ER physician at 1658 Urinalysis did show 2+ leukocyte esterase 1+ bacteria and mild amount of white. This may have been what instigated her syncopal episode. Treating with Rocephin here in the emergency room and home on Keflex. Assessment and plan: Syncope Urinary tract infection ?IV Rocephin - Discharged home - Discussed plan with patient. Answered any questions. - Evaluation and treatment of this problem were appropriate in the emergency setting. Lab Data 04/15/24 14:38 04/15/24 14:38 Radiology Impressions Chest X-Ray 04/15/24 14:38 IMPRESSION: 1. No acute cardiopulmonary finding. No change. Head CT 04/15/24 14:38 IMPRESSION: No acute intracranial findings. Laboratory Results WBC 7.77 10^3/uL (3.29-11.43) 04/15/24 14:38 RBC 5.35 10^6/uL (3.85-5.65) 04/15/24 14:38 Hgb 14.80 g/dL (11.27-16.99) 04/15/24 14:38 Hct 45.8 % (36-47) 04/15/24 14:38 MCV 85.6 fl (85-98) 04/15/24 14:38 MCH 27.7 pg (27-33) 04/15/24 14:38 MCHC 32.3 g/dL (30-55) 04/15/24 14:38 RDW 13.4 % (12.1-15.1) 04/15/24 14:38 Plt Count 278 10^3/cmm (157-399) 04/15/24 14:38 MPV 10.2 fL (7.4-10.4) 04/15/24 14:38 Neut % (Auto) 51.6 % 04/15/24 14:38 Lymph % (Auto) 37.7 % 04/15/24 14:38 Tyler % (Auto) 7.9 % 04/15/24 14:38 Eos % (Auto) 2.1 % 04/15/24 14:38 Baso % (Auto) 0.6 % 04/15/24 14:38 Neut # (Auto) 4.01 10^3/uL (1.8-7.7) 04/15/24 14:38 Lymph # (Auto) 2.9 10^3/uL (0.8-4.8) 04/15/24 14:38 [place] # (Auto) 0.6 10^3/uL (0.2-0.9) 04/15/24 14:38 Eos # (Auto) 0.2 10^3/uL (0.0-0.8) 04/15/24 14:38 Baso # (Auto) 0.1 10^3/uL (0.0-0.1) 04/15/24 14:38 Nucleated RBC % (auto) 0 % 04/15/24 14:38 Nucleated RBCs # 0.0 /100WBC 04/15/24 14:38 Sodium 137 mmol/L (136-145) 04/15/24 14:38 Potassium 3.4 mmol/L (3.5-5.1) L 04/15/24 14:38 Chloride 101 mmol/L (98-107) 04/15/24 14:38 Carbon Dioxide 22 mmol/L (22-29) 04/15/24 14:38 Anion Gap 17.4 (5-19) 04/15/24 14:38 BUN 13 mg/dL (8-23) 04/15/24 14:38 Creatinine 1.1 mg/dL (0.5-0.9) H 04/15/24 14:38 GFR Calculation 50.0 mL/min (90-130) L 04/15/24 14:38 Glucose 147 mg/dL (65-115) H 04/15/24 14:38 Calculated Osmolality 287 mOsm/kg (285-295) 04/15/24 14:38 Lactic Acid 3.0 mmol/L (0.5-2.2) H 04/15/24 14:38 Lactic Acid (Sepsis) 1.9 mmol/L (0.5-2.2) 04/15/24 17:46 Calcium 10.6 mg/dL (8.5-10.5) H 04/15/24 14:38 Magnesium 1.9 mg/dL (1.7-2.3) 04/15/24 14:38 Total Bilirubin 0.5 mg/dL (0.15-1.2) 04/15/24 14:38 AST 23 U/L (0-32) 04/15/24 14:38 ALT 25 U/L (0-33) 04/15/24 14:38 Alkaline Phosphatase 123 U/L (35-105) H 04/15/24 14:38 Creatine Kinase 33 U/L (26-192) 04/15/24 14:38 Troponin T Baseline 7 ng/L (0-10) 04/15/24 14:38 Troponin T 120 Minute 6.10 ng/L (0-10) 04/15/24 15:55 Delta Troponin T -0.90 ABS# (0-10) L 04/15/24 15:55 Total Protein 7.7 g/dL (6.6-8.7) 04/15/24 14:38 Albumin 4.0 g/dL (3.5-5.2) 04/15/24 14:38 Globulin 3.7 g/dL (1.3-4.6) 04/15/24 14:38 Lipase 43 U/L (13-60) 04/15/24 14:38 Urine Color Yellow (Yellow) 04/15/24 16:21 Urine Appearance Cloudy (CLEAR) A 04/15/24 16:21 Urine pH 7 (5-7) 04/15/24 16:21 Ur Specific [place] 1.010 (1.005-1.030) 04/15/24 16:21 Urine Protein Neg (Negative) 04/15/24 16:21 Urine Glucose (UA) Norm (Normal) 04/15/24 16:21 Urine Ketones Negative (Negative) 04/15/24 16:21 Urine Blood Neg (Negative) 04/15/24 16:21 Urine Nitrate Negative (Negative) 04/15/24 16:21 Urine Bilirubin Neg (Negative) 04/15/24 16:21 Urine Urobilinogen 4 mg/dL (Negative) H 04/15/24 16:21 Ur Leukocyte Esterase 2+ (Negative) H 04/15/24 16:21 Urine RBC 0-4 /hpf (0-2) H 04/15/24 16:21 Urine WBC 0-4 /hpf (0-5) H 04/15/24 16:21 Ur Squamous Epith Cells 25-40 /hpf (0-5) H 04/15/24 16:21 Amorphous Sediment Not Reportable 04/15/24 16:21 Urine Bacteria 1+ /hpf (NONE) H 04/15/24 16:21 Serum Ketones Negative (Negative) 04/15/24 14:38 Discharge Plan Discharge Patient Disposition: Home Clinical Impression: Syncope, Urinary tract infection Condition: Stable Prescriptions: New cephalexin 500 mg capsule 500 mg PO BID 5 Days Qty: 10 0RF No Action cephalexin 500 mg capsule 500 mg PO QID 7 Days Qty: 28 0RF chlorthalidone 25 mg tablet 25 mg PO DAILY Qty: 90 1RF lisinopril 10 mg tablet See Rx Instructions .ROUTE .COMPLEX Qty: 90 1RF Dose Instruction: TAKE ONE TABLET BY MOUTH ONCE DAILY Rx Instructions: TAKE ONE TABLET BY MOUTH ONCE DAILY docusate sodium [Colace] 100 mg capsule 100 mg PO BID PRN (Reason: constipation) Qty: 30 0RF celecoxib [Celebrex] 200 mg capsule 200 mg PO DAILY Qty: 90 1RF omeprazole 40 mg capsule,delayed release(DR/EC) 40 mg PO DAILY Qty: 60 0RF gabapentin 100 mg capsule See Rx Instructions .ROUTE .COMPLEX Qty: 180 0RF Dose Instruction: TAKE TWO CAPSULES BY MOUTH DAILY Rx Instructions: TAKE TWO CAPSULES BY MOUTH DAILY ondansetron 4 mg tablet,disintegrating 4 mg PO Q6H PRN (Reason: nausea and vomiting) Qty: 14 0RF Discharge Orders: Discharge ED (Routine); Ordered 04/15/24 Ordered By: Brianda Hamlin Referrals: Lit Otero MD [Primary Care Provider] - 4-7 days Discharge Diet: As Directed Discharge Activity: Increase activity as tolerated Patient Instructions: Syncope (ED) Activity Restrictions/Additional Instructions: Thank you for choosing [facility] for your healthcare needs today. Please realize this is an emergency room and that we are providing you with a medical screening exam and this may not be complete and all inclusive of all the testing and or work up that you may need to determine your ailment or severity of your illness. You have been screened and evaluated and felt safe for discharge. Health conditions do change or evolve sometimes and as such it is important that you follow up with your Primary Doctor to be re checked, 3-5 days is a general good time frame for follow up. You are always welcome to return to the ED for re assessment if your symptoms are worsening or you have new concerns Coding Level of Care Code ED Assistant Gm Of Content [employer] Delivery for Chg Fwd Documented by User: Brianda Hamlin MD 04/15/24 18:18 HPI - Dizziness General: Chief Complaint: Dizziness Stated Complaint: sob, about to pass out Time Seen by Provider: 04/15/24 14:37 PFSH ED PFSH: Medical History Cholelithiasis Tam esophagus Essential hypertension GERD (gastroesophageal reflux disease) Angina at rest History of kidney stones Tooth abscess Surgical History History of hysterectomy History of lithotripsy History of knee surgery Social History Smoking and tobacco/nicotine status: never used tobacco/nicotine Alcohol intake: current Alcohol intake frequency: few times a month Substance/Drug Use: never Adopted: Yes Lives independently: Yes Course Vital Signs: Vital signs: Vital Signs Temperature 97.6 F 04/15/24 14:30 Pulse Rate 80 04/15/24 18:28 Respiratory Rate 19 H 04/15/24 14:30 Blood Pressure 122/98 04/15/24 18:28 Pulse Oximetry 96 04/15/24 18:28 Oxygen Delivery Md thod Room Air 04/15/24 18:28 MDM - Dizziness Medical Decision Making Patient care was transitioned to ne at shift change. Patient has had a syncopal episode and weakness which has since resolved. Her second cardiac markers and her second EKG were pending. Cardiac markers remain negative. Her EKG shows no ischemic changes. EKG: Time 1654 rate 63. Sinus rhythm with sinus arrhythmia, No ST-T changes, no ectopy, normal IN & QRS intervals, This was reviewed and interpreted by myself the ER physician at 1658 Urinalysis did show 2+ leukocyte esterase 1+ bacteria and mild amount of white. This may have been what instigated her syncopal episode. Treating with Rocephin here in the emergency room and home on Keflex. Assessment and plan: Syncope Urinary tract infection ?IV Rocephin - Discharged home - Discussed plan with patient. Answered any questions. - Evaluation and treatment of this problem were appropriate in the emergency setting. Lab Data 04/15/24 14:38 04/15/24 14:38 Radiology Impressions Chest X-Ray 04/15/24 14:38 IMPRESSION: 1. No acute cardiopulmonary finding. No change. Head CT 04/15/24 14:38 IMPRESSION: No acute intracranial findings. Laboratory Results WBC 7.77 10^3/uL (3.29-11.43) 04/15/24 14:38 RBC 5.35 10^6/uL (3.85-5.65) 04/15/24 14:38 Hgb 14.80 g/dL (11.27-16.99) 04/15/24 14:38 Hct 45.8 % (36-47) 04/15/24 14:38 MCV 85.6 fl (85-98) 04/15/24 14:38 MCH 27.7 pg (27-33) 04/15/24 14:38 MCHC 32.3 g/dL (30-55) 04/15/24 14:38 RDW 13.4 % (12.1-15.1) 04/15/24 14:38 Plt Count 278 10^3/cmm (157-399) 04/15/24 14:38 MPV 10.2 fL (7.4-10.4) 04/15/24 14:38 Neut % (Auto) 51.6 % 04/15/24 14:38 Lymph % (Auto) 37.7 % 04/15/24 14:38 Tyler % (Auto) 7.9 % 04/15/24 14:38 Eos % (Auto) 2.1 % 04/15/24 14:38 Baso % (Auto) 0.6 % 04/15/24 14:38 Neut # (Auto) 4.01 10^3/uL (1.8-7.7) 04/15/24 14:38 Lymph # (Auto) 2.9 10^3/uL (0.8-4.8) 04/15/24 14:38 Tyler # (Auto) 0.6 10^3/uL (0.2-0.9) 04/15/24 14:38 Eos # (Auto) 0.2 10^3/uL (0.0-0.8) 04/15/24 14:38 Baso # (Auto) 0.1 10^3/uL (0.0-0.1) 04/15/24 14:38 Nucleated RBC % (auto) 0 % 04/15/24 14:38 Nucleated RBCs # 0.0 /100WBC 04/15/24 14:38 Sodium 137 mmol/L (136-145) 04/15/24 14:38 Potassium 3.4 mmol/L (3.5-5.1) L 04/15/24 14:38 Chloride 101 mmol/L (98-107) 04/15/24 14:38 Carbon Dioxide 22 mmol/L (22-29) 04/15/24 14:38 Anion Gap 17.4 (5-19) 04/15/24 14:38 BUN 13 mg/dL (8-23) 04/15/24 14:38 Creatinine 1.1 mg/dL (0.5-0.9) H 04/15/24 14:38 GFR Calculation 50.0 mL/min (90-130) L 04/15/24 14:38 Glucose 147 mg/dL (65-115) H 04/15/24 14:38 Calculated Osmolality 287 mOsm/kg (285-295) 04/15/24 14:38 Lactic Acid 3.0 mmol/L (0.5-2.2) H 04/15/24 14:38 Lactic Acid (Sepsis) 1.9 mmol/L (0.5-2.2) 04/15/24 17:46 Calcium 10.6 mg/dL (8.5-10.5) H 04/15/24 14:38 Magnesium 1.9 mg/dL (1.7-2.3) 04/15/24 14:38 Total Bilirubin 0.5 mg/dL (0.15-1.2) 04/15/24 14:38 AST 23 U/L (0-32) 04/15/24 14:38 ALT 25 U/L (0-33) 04/15/24 14:38 Alkaline Phosphatase 123 U/L (35-105) H 04/15/24 14:38 Creatine Kinase 33 U/L (26-192) 04/15/24 14:38 Troponin T Baseline 7 ng/L (0-10) 04/15/24 14:38 Troponin T 120 Minute 6.10 ng/L (0-10) 04/15/24 15:55 Delta Troponin T -0.90 ABS# (0-10) L 04/15/24 15:55 Total Protein 7.7 g/dL (6.6-8.7) 04/15/24 14:38 Albumin 4.0 g/dL (3.5-5.2) 04/15/24 14:38 Globulin 3.7 g/dL (1.3-4.6) 04/15/24 14:38 Lipase 43 U/L (13-60) 04/15/24 14:38 Urine Color Yellow (Yellow) 04/15/24 16:21 Urine Appearance Cloudy (CLEAR) A 04/15/24 16:21 Urine pH 7 (5-7) 04/15/24 16:21 Ur Specific [place] 1.010 (1.005-1.030) 04/15/24 16:21 Urine Protein Neg (Negative) 04/15/24 16:21 Urine Glucose (UA) Norm (Normal) 04/15/24 16:21 Urine Ketones Negative (Negative) 04/15/24 16:21 Urine Blood Neg (Negative) 04/15/24 16:21 Urine Nitrate Negative (Negative) 04/15/24 16:21 Urine Bilirubin Neg (Negative) 04/15/24 16:21 Urine Urobilinogen 4 mg/dL (Negative) H 04/15/24 16:21 Ur Leukocyte Esterase 2+ (Negative) H 04/15/24 16:21 Urine RBC 0-4 /hpf (0-2) H 04/15/24 16:21 Urine WBC 0-4 /hpf (0-5) H 04/15/24 16:21 Ur Squamous Epith Cells 25-40 /hpf (0-5) H 04/15/24 16:21 Amorphous Sediment Not Reportable 04/15/24 16:21 Urine Bacteria 1+ /hpf (NONE) H 04/15/24 16:21 Serum Ketones Negative (Negative) 04/15/24 14:38 All radiology interpretation(s) finalized by discharge Discharge Plan Discharge Patient Disposition: Home Clinical Impression: Syncope, Urinary tract infection Condition: Stable Prescriptions: New cephalexin 500 mg capsule 500 mg PO BID 5 Days Qty: 10 0RF No Action cephalexin 500 mg capsule 500 mg PO QID 7 Days Qty: 28 0RF chlorthalidone 25 mg tablet 25 mg PO DAILY Qty: 90 1RF lisinopril 10 mg tablet See Rx Instructions .ROUTE .COMPLEX Qty: 90 1RF Dose Instruction: TAKE ONE TABLET BY MOUTH ONCE DAILY Rx Instructions: TAKE ONE TABLET BY MOUTH ONCE DAILY docusate sodium [Colace] 100 mg capsule 100 mg PO BID PRN (Reason: constipation) Qty: 30 0RF celecoxib [Celebrex] 200 mg capsule 200 mg PO DAILY Qty: 90 1RF omeprazole 40 mg capsule,delayed release(DR/EC) 40 mg PO DAILY Qty: 60 0RF gabapentin 100 mg capsule See Rx Instructions .ROUTE .COMPLEX Qty: 180 0RF Dose Instruction: TAKE TWO CAPSULES BY MOUTH DAILY Rx Instructions: TAKE TWO CAPSULES BY MOUTH DAILY ondansetron 4 mg tablet,disintegrating 4 mg PO Q6H PRN (Reason: nausea and vomiting) Qty: 14 0RF Discharge Orders: Discharge ED (Routine); Ordered 04/15/24 Ordered By: Brianda Hamlin Referrals: Lit Otero MD [Primary Care Provider] - 4-7 days Discharge Diet: As Directed Discharge Activity: Increase activity as tolerated Patient Instructions: Syncope (ED) Activity Restrictions/Additional Instructions: Thank you for choosing [facility] for your healthcare needs today. Please realize this is an emergency room and that we are providing you with a medical screening exam and this may not be complete and all inclusive of all the testing and or work up that you may need to determine your ailment or severity of your illness. You have been screened and evaluated and felt safe for discharge. Health conditions do change or evolve sometimes and as such it is important that you follow up with your Primary Doctor to be re checked, 3-5 days is a general good time frame for follow up. You are always welcome to return to the ED for re assessment if your symptoms are worsening or you have new concerns Coding Level of Care Code ED Assistant [employer] Of [employer] Delivery for Gary Diez
[2024-04-15] MEDS: aspirin 81 mg Chew Tablet 324 MG PO (14:47)
[2024-04-15 14:48] LABS: Basophils # 0.1 10^3/uL (0.0-0.1); Basophils % 0.6 %; Eosinophils # 0.2 10^3/uL (0.0-0.8); Eosinophils % 2.1 %; Hematocrit 45.8 % (36-47); Lymphocytes # 2.9 10^3/uL (0.8-4.8); Lymphocytes % 37.7 %; Mean Corpuscular HGB Conc 32.3 g/dL (30-55); Mean Corpuscular Hemoglobin 27.7 pg (27-33); Mean Corpuscular Volume 85.6 fl (85-98); Mean Platelet Volume 10.2 fL (7.4-10.4); Monocytes # 0.6 10^3/uL (0.2-0.9); Monocytes % 7.9 %; Neutrophils # 4.01 10^3/uL (1.8-7.7); Neutrophils % 51.6 %; Nucleated Red Blood Cells % 0 %; Platelet Count 278 10^3/cmm (157-399); Red Blood Count 5.35 10^6/uL (3.85-5.65); Red Cell Distribution Width 13.4 % (12.1-15.1); White Blood Count 7.77 10^3/uL (3.29-11.43)
[2024-04-15 15:09] LABS: Alanine Aminotransferase 25 U/L (0-33); Alkaline Phosphatase 123 U/L (35-105); Anion Gap 17.4 (5-19); Aspartate Amino Transferase 23 U/L (0-32); Blood Urea Nitrogen 13 mg/dL (8-23); Calcium 10.6 mg/dL (8.5-10.5); Carbon Dioxide 22 mmol/L (22-29); Chloride 101 mmol/L (98-107); Creatine Phosphokinase 33 U/L (26-192); Creatinine Clr Calc Pharmacy 63.9197; Globulin 3.7 g/dL (1.3-4.6); Glucose 147 mg/dL (65-115); Lipase 43 U/L (13-60); Magnesium 1.9 mg/dL (1.7-2.3); Osmolality Calculated 287 mOsm/kg (285-295); Potassium 3.4 mmol/L (3.5-5.1); Sodium 137 mmol/L (136-145); Total Bilirubin 0.5 mg/dL (0.15-1.2); Total Protein 7.7 g/dL (6.6-8.7); Troponin(5th) Baseline 7 ng/L (0-10)
[2024-04-15 15:14] LABS: Ketone (Acetest) Serum Negative (Negative)
[2024-04-15 16:31] LABS: Reflex Lactate Order REFLEX LACTIC ORDERD
--- NOTE | 2024-04-15 16:39 | ECG_ITS ---
[facility] Test Date: 2024-04-15 Pat Name: Sandra Aparicio Department: Room: Gender: Female Judge: : 1960 Requested By: Randall Martinez Order Number: [id number] Satish MD: Seng Marie M.D. Measurements Intervals [place] Rate: 63 P: 28 NE: 165 QRS: 76 QRSD: 105 T: 54 QT: 389 QTc: 398 Interpretive Statements SINUS RHYTHM WITH MARKED SINUS ARRHYTHMIA LOW QRS VOLTAGE IN PRECORDIAL LEADS [QRS DEFLECTION < 1.0 mV IN CHEST LEADS] NONSPECIFIC T-WAVE ABNORMALITY Compared to ECG 04/15/2024 14:29:53 Low QRS voltage now present T-wave abnormality still present Electronically Signed On 04-16-2024 13:57:13 CDT by Seng Marie M.D. [id number]
[2024-04-15 16:55] LABS: Add Urine Microscopic? YES; Bilirubin Urine Neg (Negative); Blood Urine Neg (Negative); Glucose Urine UA Norm (Normal); Ketones Urine Negative (Negative); Leukocyte Esterase Urine 2+ (Negative); Nitrate Urine Negative (Negative); Protein Urine Neg (Negative); Urine Appearance Cloudy (CLEAR); Urine Color Yellow (Yellow); Urobilinogen Urine 4 mg/dL (Negative); pH Urine 7 (5-7)
[2024-04-15 17:25] LABS: Bacteria Urine 1+ /hpf; RBC Urine 0-4 /hpf (0-2); Squamous Epithelial Cell Urine 25-40 /hpf (0-5); WBC Urine 0-4 /hpf (0-5)
[2024-04-15] MEDS: cefTRIAXone 1,000 MG in sodium chloride 0.9% (plus) 50 ML 100 MG IV (17:47)
[2024-04-15 18:28] VITALS: BP 122/98; PULSE 80; O2SAT 96
[2024-04-15 18:47] LABS: Lactic Acid level (Lactate) 1.9 mmol/L (0.5-2.2)
== END 2024-04-15 18:30 | disposition home or self-care (01) ==
PROVIDERS: Family Medicine; Emergency Provider Emergency Medicine; PCP Family Medicine
DX: R55 Syncope and collapse (principal); N39.0 Urinary tract infection, site not specified; I10 Essential (primary) hypertension
CPT/HCPCS: 36415; 70450; 71045; 80053; 81001; 82009; 82550; 83605; 83690; 83735; 84484; 85025; 87040; 93005; 96374; 99285; J0696

== ENCOUNTER → 2024-09-18 14:29 | Outpatient (BNVA) | payer BC, MEDICAID, SELFPAY | PROVIDERS: PCP Family Medicine; Visit Provider Family Medicine | DX: I10 Essential (primary) hypertension (principal); R30.0 Dysuria; R73.09 Other abnormal glucose | CPT/HCPCS: 81000 ==

== ENCOUNTER 2024-10-26 15:32 | Emergency (ER) | payer SELFPAY ==
[2024-10-26] VITALS (8 sets, daily range): BP systolic 107–122; BP diastolic 42–90; PULSE 69–82; RESP 16–17; TEMP 36.6; O2SAT 97–100; BMI 28.3
--- NOTE | 2024-10-26 15:33 | XRR_ITS ---
PROCEDURE INFORMATION: Exam: XR Chest Exam date and time: 10/26/2024 3:53 PM Age: 63 years old Clinical indication: Pain; Chest pressure; Additional info: Cp TECHNIQUE: Imaging protocol: Radiologic exam of the chest. Views: 1 view. COMPARISON: CR XR chest 1V portable [id number] 04/15/2024 2:49 PM FINDINGS: Lungs: No consolidation. Pleural spaces: No pleural effusion. No pneumothorax. Heart/Mediastinum: No cardiomegaly. Bones/joints: Visualized osseous structures are intact. XR/XR chest 1V portable [id number] IMPRESSION: No acute findings.
--- NOTE | 2024-10-26 15:42 | ECG_ITS ---
[facility] Date: 2024-10-26 Pat Name: Sandra Aparicio Department: Room: Gender: Female Rougher [employer]: : 1960 Requested By: Melvin Siddiqui Order Number: [id number] Reading MD: NELA BOCANEGRA Measurements Intervals [place] Rate: 65 P: 19 CO: 130 QRS: 78 QRSD: 91 T: 72 QT: 388 QTc: 404 Interpretive Statements SINUS RHYTHM SEPTAL MYOCARDIAL INFARCTION , OF INDETERMINATE AGE [40+ ms Q WAVE IN V1/V2] Compared to ECG 04/15/2024 16:54:06 Myocardial infarct finding now present Sinus arrhythmia no longer present T-wave abnormality no longer present Electronically Signed On 10-27-2024 16:07:59 GENERAL FARMWORKER by NELA BOCANEGRA [email or web address]
--- NOTE | 2024-10-26 15:49 | ED_ITS ---
Documented by User: Randall Roche DO 10/28/24 13:06 HPI - Chest Pain 2 General: Chief Complaint: Chest Pain Stated Complaint: CHEST PAIN Time Seen by Provider: 10/26/24 15:46 History of Present Illness: 63-year-old female who presents to the e mergency room with complaint of chest pain. Chest pain not exacerbated or relieved by anything that is noticed. Patient complaining of shortness of breath nonproductive cough. No abdominal pain no cough no fever sweats or chills Stress test in July 2022 was negative for any signs of reversible ischemia Associated symptoms: Deny abdominal pain, dyspnea or fever(s) Related Data Home Medications Medication Instructions Recorded Confirmed gabapentin 100 mg capsule 200 mg PO DAILY 10/26/24 10/26/24 lisinopril 10 mg tablet 10 mg PO DAILY 10/26/24 10/26/24 Previous Rx's Medication Instructions Recorded omeprazole 40 mg capsule,delayed 40 mg PO DAILY #60 caps 08/18/24 release chlorthalidone 25 mg tablet 25 mg PO DAILY #90 tabs 09/10/24 venlafaxine 37.5 mg 37.5 mg PO DAILY #30 caps 09/22/24 capsule,extended release 24 hr (Effexor XR) doxycycline hyclate 100 mg tablet 100 mg PO BID 7 days #14 tabs 10/26/24 ketorolac 10 mg tablet 10 mg PO TID PRN pain #10 tabs 10/26/24 Allergies Allergy/AdvReac Type Severity Reaction Status Date / Time ketamine Allergy Severe hallucinati Verified 09/18/24 14:34 ons iodine Allergy ALGY-Anaphy Verified 09/18/24 14:34 laxis Penicillins Allergy Unknown Verified 09/18/24 14:34 Review of Systems 2 Const: Denies: fever(s) or chills Card: Reports: chest pain Resp: Denies: dyspnea GI: Denies: abdominal pain : Denies: dysuria, urinary frequency or urinary urgency Musc: Denies: neck pain or back pain Skin/Breast: Denies: rash PFSH ED 2 PFSH: Medical History Cholelithiasis Tam esophagus Essential hypertension GERD (gastroesophageal reflux disease) Angina at rest History of kidney stones Tooth abscess Surgical History History of hysterectomy History of lithotripsy History of knee surgery Social History Smoking and tobacco/nicotine status: never used tobacco/nicotine Alcohol intake: current Alcohol intake frequency: few times a month Substance/Drug Use: never Adopted: Yes Lives independently: Yes Physical Exam 2 Const: COMMON NORMALS: no acute distress GENERAL APPEARANCE: cooperative and comfortable ORIENTATION/CONSCIOUSNESS: Yes awake, Yes oriented to person, Yes oriented to place and Yes oriented to time HENMT: COMMON NORMALS: normocephalic, atraumatic and hearing grossly normal bilaterally HEAD & SCALP: normocephalic and atraumatic Resp: COMMON NORMALS: normal respiratory effort, No retractions, No use of accessory muscles and clear to auscultation bilaterally AUSCULTATION: clear to auscultation bilaterally Cardio: COMMON NORMALS: regular rate, regular rhythm and No murmurs present (Cardio) RATE: regular rate RHYTHM: regular rhythm GI: COMMON NORMALS: Soft to palpation and No hepatosplenomegaly present A USCULTATION: Yes normoactive bowel sounds PALPATION: Yes Soft to palpation, No Tenderness to palpation present (GI), No Guarding due to palpation present (GI) and Yes No hepatosplenomegaly present Extremity: COMMON NORMALS: normal to inspection, capillary refill normal, no clubbing, cyanosis or edema, no calf tenderness and no pedal edema Neuro: SENSORIUM/ORIENTATION: Yes oriented to person, Yes oriented to place and Yes oriented to time Skin: COMMON NORMALS: no rashes or lesions noted GENERAL SKIN EXAM: no rashes or lesions noted Course 2 Vital Signs: Vital signs: Vital Signs Temperature 97.9 F 10/26/24 15:45 Pulse Rate 69 10/26/24 19:09 Respiratory Rate 16 10/26/24 19:09 Blood Pressure 122/90 10/26/24 19:09 Pulse Oximetry 97 10/26/24 19:09 Oxygen Delivery Me thod Room Air 10/26/24 15:45 MDM - Chest Pain Medical Decision Making Care signed out to Dr. Franklin at change of shift. See final notes for diagnosis and disposition. 63-year-old female checked out at shift change. She does not have a prior history of coronary disease. Chest pain is still sharp, worse with deep breathing. CBC is normal. BMP is not remarkable. Chest x-ray is nonacute. Swabs for COVID and flu were negative. Her troponin remained 6 at 2 hours. Her creatinine is normal. She is given Toradol here for pleuritic chest pain. She states that she has this kind of pain with walking pneumonia, which does not tend to show up on x-ray for a few days after she gets symptoms. She will be treated empirically for this. Close outpatient follow-up. Return for worsening Lab Data 10/26/24 15:53 10/26/24 15:53 Radiology Impressions Chest X-Ray 10/26/24 15:33 IMPRESSION: No acute findings. Laboratory Results WBC 6.27 10^3/uL (3.29-11.43) 10/26/24 15:53 RBC 5.30 10^6/uL (3.85-5.65) 10/26/24 15:53 Hgb 14.50 g/dL (11.27-16.99) 10/26/24 15:53 Hct 45.8 % (36-47) 10/26/24 15:53 MCV 86.4 fl (85-98) 10/26/24 15:53 MCH 27.4 pg (27-33) 10/26/24 15:53 MCHC 31.7 g/dL (30-55) 10/26/24 15:53 RDW 13.6 % (12.1-15.1) 10/26/24 15:53 Plt Count 276 10^3/cmm (157-399) 10/26/24 15:53 MPV 10.3 fL (7.4-10.4) 10/26/24 15:53 Neut % (Auto) 52.8 % 10/26/24 15:53 Lymph % (Auto) 34.4 % 10/26/24 15:53 Izard % (Auto) 6.9 % 10/26/24 15:53 Eos % (Auto) 4.8 % 10/26/24 15:53 Baso % (Auto) 0.8 % 10/26/24 15:53 Neut # (Auto) 3.31 10^3/uL (1.8-7.7) 10/26/24 15:53 Lymph # (Auto) 2.2 10^3/uL (0.8-4.8) 10/26/24 15:53 Izard # (Auto) 0.4 10^3/uL (0.2-0.9) 10/26/24 15:53 Eos # (Auto) 0.3 10^3/uL (0.0-0.8) 10/26/24 15:53 Baso # (Auto) 0.1 10^3/uL (0.0-0.1) 10/26/24 15:53 Nucleated RBC % (auto) 0 % 10/26/24 15:53 Nucleated RBCs # 0.0 /100WBC 10/26/24 15:53 PT 11.70 SECONDS (12.1-14.9) L 10/26/24 15:53 INR 0.84 (0.8-1.2) 10/26/24 15:53 Sodium 138 mmol/L (136-145) 10/26/24 15:53 Potassium 3.9 mmol/L (3.5-5.1) 10/26/24 15:53 Chloride 102 mmol/L (98-107) 10/26/24 15:53 Carbon Dioxide 25 mmol/L (22-29) 10/26/24 15:53 Anion Gap 14.9 (5-19) 10/26/24 15:53 BUN 13 mg/dL (8-23) 10/26/24 15:53 Creatinine 0.8 mg/dL (0.5-0.9) 10/26/24 15:53 GFR Calculation 72.2 mL/min (90-130) L 10/26/24 15:53 Glucose 138 mg/dL (65-115) H 10/26/24 15:53 Calculated Osmolality 288 mOsm/kg (285-295) 10/26/24 15:53 Calcium 10.4 mg/dL (8.5-10.5) 10/26/24 15:53 Total Bilirubin 0.3 mg/dL (0.15-1.2) 10/26/24 15:53 AST 21 U/L (0-32) 10/26/24 15:53 ALT 20 U/L (0-33) 10/26/24 15:53 Alkaline Phosphatase 110 U/L (35-105) H 10/26/24 15:53 Troponin T Baseline < 6 ng/L (0-10) 10/26/24 15:53 Troponin T 120 Minute 6.00 ng/L (0-10) 10/26/24 17:42 Delta Troponin T 0.04448 ABS# (0-10) 10/26/24 17:42 Total Protein 7.1 g/dL (6.6-8.7) 10/26/24 15:53 Albumin 4.0 g/dL (3.5-5.2) 10/26/24 15:53 Globulin 3.1 g/dL (1.3-4.6) 10/26/24 15:53 Lipase 48 U/L (13-60) 10/26/24 15:53 Coronavirus (PCR) Negative (Negative) 10/26/24 16:43 Influenza A (PCR) Negative (Negative) 10/26/24 16:43 Influenza Type B (PCR) Negative (Negative) 10/26/24 16:43 RSV (PCR) Negative (Negative) 10/26/24 16:43 Discharge Plan Discharge Patient Disposition: Home Clinical Impression: Atypical chest pain Condition: Stable Prescriptions: New ketorolac 10 mg tablet 10 mg PO TID PRN (Reason: pain) Qty: 10 0RF doxycycline hyclate 100 mg tablet 100 mg PO BID 7 Days Qty: 14 0RF No Action omeprazole 40 mg capsule,delayed release(DR/EC) 40 mg PO DAILY Qty: 60 0RF chlorthalidone 25 mg tablet 25 mg PO DAILY Qty: 90 1RF venlafaxine [Effexor XR] 37.5 mg capsule,extended release 24hr 37.5 mg PO DAILY Qty: 30 0RF lisinopril 10 mg tablet 10 mg PO DAILY gabapentin 100 mg capsule 200 mg PO DAILY Discharge Orders: Discharge ED (Routine); Ordered 10/26/24 Ordered By: Mode Franklin Referrals: Lit Otero MD [Primary Care Provider] - 1-3 days Patient Instructions: Chest Pain (ED), Opioid Safety, Pain Management Activity Restrictions/Additional Instructions: Return for worsening chest pain despite treatment, fever, shortness of breath, vomiting, other concerning symptoms. Call your doctor tomorrow for an appointment this week. If you get further symptoms of walking pneumonia such as cough, temperatures, etc. you may start antibiotics prescribed. Coding Level of Care Code ED Battery Charger for Chg Fwd Documented by User: Mode Franklin DO 10/26/24 21:11 HPI - Chest Pain 2 General: Chief Complaint: Chest Pain Stated Complaint: CHEST PAIN Time Seen by Provider: 10/26/24 15:46 Related Data Home Medications Medication Instructions Recorded Confirmed gabapentin 100 mg capsule 200 mg PO DAILY 10/26/24 10/26/24 lisinopril 10 mg tablet 10 mg PO DAILY 10/26/24 10/26/24 Previous Rx's Medication Instructions Recorded omeprazole 40 mg capsule,delayed 40 mg PO DAILY #60 caps 08/18/24 release chlorthalidone 25 mg tablet 25 mg PO DAILY #90 tabs 09/10/24 venlafaxine 37.5 mg 37.5 mg PO DAILY #30 caps 09/22/24 capsule,extended release 24 hr (Effexor XR) doxycycline hyclate 100 mg tablet 100 mg PO BID 7 days #14 tabs 10/26/24 ketorolac 10 mg tablet 10 mg PO TID PRN pain #10 tabs 10/26/24 Allergies Allergy/AdvReac Type Severity Reaction Status Date / Time ketamine Allergy Severe hallucinati Verified 09/18/24 14:34 ons iodine Allergy ALGY-Anaphy Verified 09/18/24 14:34 laxis Penicillins Allergy Unknown Verified 09/18/24 14:34 PFSH ED 2 PFSH: Medical History Cholelithiasis Tam esophagus Essential hypertension GERD (gastroesophageal reflux disease) Angina at rest History of kidney stones Tooth abscess Surgical History History of hysterectomy History of lithotripsy History of knee surgery Social History Smoking and tobacco/nicotine status: never used tobacco/nicotine Alcohol intake: current Alcohol intake frequency: few times a month Substance/Drug Use: never Adopted: Yes Lives independently: Yes Course 2 Vital Signs: Vital signs: Vital Signs Temperature 97.9 F 10/26/24 15:45 Pulse Rate 69 10/26/24 19:09 Respiratory Rate 16 10/26/24 19:09 Blood Pressure 122/90 10/26/24 19:09 Pulse Oximetry 97 10/26/24 19:09 Oxygen Delivery Me thod Room Air 10/26/24 15:45 MDM - Chest Pain Medical Decision Making 63-year-old female checked out at shift change. She does not have a prior history of coronary disease. Chest pain is still sharp, worse with deep breathing. CBC is normal. BMP is not remarkable. Chest x-ray is nonacute. Swabs for COVID and flu were negative. Her troponin remained 6 at 2 hours. Her creatinine is normal. She is given Toradol here for pleuritic chest pain. She states that she has this kind of pain with walking pneumonia, which does not tend to show up on x-ray for a few days after she gets symptoms. She will be treated empirically for this. Close outpatient follow-up. Return for worsening Lab Data 10/26/24 15:53 10/26/24 15:53 Radiology Impressions Chest X-Ray 10/26/24 15:33 IMPRESSION: No acute findings. Laboratory Results WBC 6.27 10^3/uL (3.29-11.43) 10/26/24 15:53 RBC 5.30 10^6/uL (3.85-5.65) 10/26/24 15:53 Hgb 14.50 g/dL (11.27-16.99) 10/26/24 15:53 Hct 45.8 % (36-47) 10/26/24 15:53 MCV 86.4 fl (85-98) 10/26/24 15:53 MCH 27.4 pg (27-33) 10/26/24 15:53 MCHC 31.7 g/dL (30-55) 10/26/24 15:53 RDW 13.6 % (12.1-15.1) 10/26/24 15:53 Plt Count 276 10^3/cmm (157-399) 10/26/24 15:53 MPV 10.3 fL (7.4-10.4) 10/26/24 15:53 Neut % (Auto) 52.8 % 10/26/24 15:53 Lymph % (Auto) 34.4 % 10/26/24 15:53 Izard % (Auto) 6.9 % 10/26/24 15:53 Eos % (Auto) 4.8 % 10/26/24 15:53 Baso % (Auto) 0.8 % 10/26/24 15:53 Neut # (Auto) 3.31 10^3/uL (1.8-7.7) 10/26/24 15:53 Lymph # (Auto) 2.2 10^3/uL (0.8-4.8) 10/26/24 15:53 Izard # (Auto) 0.4 10^3/uL (0.2-0.9) 10/26/24 15:53 Eos # (Auto) 0.3 10^3/uL (0.0-0.8) 10/26/24 15:53 Baso # (Auto) 0.1 10^3/uL (0.0-0.1) 10/26/24 15:53 Nucleated RBC % (auto) 0 % 10/26/24 15:53 Nucleated RBCs # 0.0 /100WBC 10/26/24 15:53 PT 11.70 SECONDS (12.1-14.9) L 10/26/24 15:53 INR 0.84 (0.8-1.2) 10/26/24 15:53 Sodium 138 mmol/L (136-145) 10/26/24 15:53 Potassium 3.9 mmol/L (3.5-5.1) 10/26/24 15:53 Chloride 102 mmol/L (98-107) 10/26/24 15:53 Carbon Dioxide 25 mmol/L (22-29) 10/26/24 15:53 Anion Gap 14.9 (5-19) 10/26/24 15:53 BUN 13 mg/dL (8-23) 10/26/24 15:53 Creatinine 0.8 mg/dL (0.5-0.9) 10/26/24 15:53 GFR Calculation 72.2 mL/min (90-130) L 10/26/24 15:53 Glucose 138 mg/dL (65-115) H 10/26/24 15:53 Calculated Osmolality 288 mOsm/kg (285-295) 10/26/24 15:53 Calcium 10.4 mg/dL (8.5-10.5) 10/26/24 15:53 Total Bilirubin 0.3 mg/dL (0.15-1.2) 10/26/24 15:53 AST 21 U/L (0-32) 10/26/24 15:53 ALT 20 U/L (0-33) 10/26/24 15:53 Alkaline Phosphatase 110 U/L (35-105) H 10/26/24 15:53 Troponin T Baseline < 6 ng/L (0-10) 10/26/24 15:53 Troponin T 120 Minute 6.00 ng/L (0-10) 10/26/24 17:42 Delta Troponin T 0.00665 ABS# (0-10) 10/26/24 17:42 Total Protein 7.1 g/dL (6.6-8.7) 10/26/24 15:53 Albumin 4.0 g/dL (3.5-5.2) 10/26/24 15:53 Globulin 3.1 g/dL (1.3-4.6) 10/26/24 15:53 Lipase 48 U/L (13-60) 10/26/24 15:53 Coronavirus (PCR) Negative (Negative) 10/26/24 16:43 Influenza A (PCR) Negative (Negative) 10/26/24 16:43 Influenza Type B (PCR) Negative (Negative) 10/26/24 16:43 RSV (PCR) Negative (Negative) 10/26/24 16:43 All radiology interpretation(s) finalized by discharge Discharge Plan Discharge Patient Disposition: Home Clinical Impression: Atypical chest pain Condition: Stable Prescriptions: New ketorolac 10 mg tablet 10 mg PO TID PRN (Reason: pain) Qty: 10 0RF doxycycline hyclate 100 mg tablet 100 mg PO BID 7 Days Qty: 14 0RF No Action omeprazole 40 mg capsule,delayed release(DR/EC) 40 mg PO DAILY Qty: 60 0RF chlorthalidone 25 mg tablet 25 mg PO DAILY Qty: 90 1RF venlafaxine [Effexor XR] 37.5 mg capsule,extended release 24hr 37.5 mg PO DAILY Qty: 30 0RF lisinopril 10 mg tablet 10 mg PO DAILY gabapentin 100 mg capsule 200 mg PO DAILY Discharge Orders: Discharge ED (Routine); Ordered 10/26/24 Ordered By: Mode Franklin Referrals: Lit Otero MD [Primary Care Provider] - 1-3 days Patient Instructions: Chest Pain (ED), Opioid Safety, Pain Management Activity Restrictions/Additional Instructions: Return for worsening chest pain despite treatment, fever, shortness of breath, vomiting, other concerning symptoms. Call your doctor tomorrow for an appointment this week. If you get further symptoms of walking pneumonia such as cough, temperatures, etc. you may start antibiotics prescribed. Coding Level of Care Code ED Battery Charger for Gary Diez
[2024-10-26 15:58] LABS: Basophils # 0.1 10^3/uL (0.0-0.1); Basophils % 0.8 %; Eosinophils # 0.3 10^3/uL (0.0-0.8); Eosinophils % 4.8 %; Hematocrit 45.8 % (36-47); Lymphocytes # 2.2 10^3/uL (0.8-4.8); Lymphocytes % 34.4 %; Mean Corpuscular HGB Conc 31.7 g/dL (30-55); Mean Corpuscular Hemoglobin 27.4 pg (27-33); Mean Corpuscular Volume 86.4 fl (85-98); Mean Platelet Volume 10.3 fL (7.4-10.4); Monocytes # 0.4 10^3/uL (0.2-0.9); Monocytes % 6.9 %; Neutrophils # 3.31 10^3/uL (1.8-7.7); Neutrophils % 52.8 %; Nucleated Red Blood Cells % 0 %; Platelet Count 276 10^3/cmm (157-399); Red Cell Distribution Width 13.6 % (12.1-15.1); White Blood Count 6.27 10^3/uL (3.29-11.43)
[2024-10-26 16:11] LABS: INR 0.84 (0.8-1.2)
[2024-10-26 16:16] LABS: Troponin(5th) Baseline < 6 ng/L (0-10)
[2024-10-26 16:22] LABS: Alanine Aminotransferase 20 U/L (0-33); Alkaline Phosphatase 110 U/L (35-105); Anion Gap 14.9 (5-19); Aspartate Amino Transferase 21 U/L (0-32); Blood Urea Nitrogen 13 mg/dL (8-23); Calcium 10.4 mg/dL (8.5-10.5); Carbon Dioxide 25 mmol/L (22-29); Chloride 102 mmol/L (98-107); Creatinine Clr Calc Pharmacy 88.9502; Globulin 3.1 g/dL (1.3-4.6); Glomerular Filtration Rate 72.2 mL/min (90-130); Glucose 138 mg/dL (65-115); Lipase 48 U/L (13-60); Osmolality Calculated 288 mOsm/kg (285-295); Potassium 3.9 mmol/L (3.5-5.1); Sodium 138 mmol/L (136-145); Total Bilirubin 0.3 mg/dL (0.15-1.2); Total Protein 7.1 g/dL (6.6-8.7)
[2024-10-26 17:36] LABS: Covid PCR NEGATIVE (Negative); Influenza A NEGATIVE (Negative); Influenza B NEGATIVE (Negative); Respiratory Syncytial Virus Ce NEGATIVE (Negative)
[2024-10-26 18:08] LABS: Troponin 5 2HR Delta 0.00001 ABS# (0-10)
[2024-10-26] MEDS: ketorolac 30 mg/mL INJ IVP (19:01)
== END 2024-10-26 19:08 | disposition home or self-care (01) ==
PROVIDERS: Emergency Medicine; Family Medicine; Emergency Provider Emergency Medicine; PCP Family Medicine
DX: R07.89 Other chest pain (principal); Z11.52 Encounter for screening for COVID-19
CPT/HCPCS: 0241U; 36415; 71045; 80053; 83690; 84484; 85025; 85610; 93005; 96374; 99285; J1885

== ENCOUNTER → 2025-02-24 13:37 | Outpatient (BNVA) | payer MEDICARE, MEDICAID, SELFPAY | PROVIDERS: PCP Family Medicine; Referring Provider Family Medicine; Visit Provider Surgery | DX: K82.9 Disease of gallbladder, unspecified (principal) | CPT/HCPCS: 99204 ==

== ENCOUNTER 2025-02-26 07:20 | Outpatient (CLI) | payer MEDICARE, MEDICAID, SELFPAY ==
--- NOTE | 2025-02-26 07:30 | US_ITS ---
WS: [id number] RIGHT UPPER QUADRANT ULTRASOUND HISTORY: Gallbaldder Probelm COMPARISON: 04/04/2023 Liver: 18.6 cm in length. Normal size liver and echogenicity. No bile duct dilatation or mass. Portal Vein: Normal hepatopetal flow with monophasic waveform. Gallbladder: Well-distended gallbladder with stones. No pericholecystic fluid. CBD: 0.6 cm Pancreas: Normal size and echogenicity. Right kidney: 8.8 cm in length. Low normal size kidney. No obstruction. Single nonobstructing calcification in the lower pole measuring 1.4 x 1.7 x 0.8 cm. Aorta and IVC: Unremarkable abdominal aorta and IVC. No ascites. US/US gall bladder 29739 IMPRESSION: 1. Cholelithiasis without acute cholecystitis. 2. Low normal size kidney, unchanged since 04/04/2023. 3. Nonobstructing lower pole calcification RIGHT kidney.
== END 2025-02-26 07:21 | disposition home or self-care (01) ==
LOC: RAD 07:21
PROVIDERS: PCP Family Medicine; Visit Provider Surgery
DX: K82.9 Disease of gallbladder, unspecified (principal); K80.20 Calculus of gallbladder without cholecystitis without obstruction; N28.89 Other specified disorders of kidney and ureter; R93.421 Abnormal radiologic findings on diagnostic imaging of right kidney
CPT/HCPCS: 76705

== ENCOUNTER → 2025-03-18 14:45 | Outpatient (BNVA) | payer MEDICARE, MEDICAID, SELFPAY | PROVIDERS: PCP Family Medicine; Visit Provider Surgery | DX: K80.66 Calculus of gallbladder and bile duct with acute and chronic cholecystitis without obstruction (principal) | CPT/HCPCS: 99213 ==

== ENCOUNTER 2025-05-18 05:58 | Day surgery (SDC) | payer MEDICARE, MEDICAID, SELFPAY ==
[2025-05-18] VITALS (9 sets, daily range): BP systolic 104–129; BP diastolic 54–81; PULSE 50–63; RESP 16–18; TEMP 36.2–36.3; O2SAT 95–100; BMI 30.1
--- NOTE | 2025-05-18 06:16 | ANES.PREANE2 ---
Pre-Anesthetic Assessment Height/Weight: Height 5 ft 9 in Weight 204 lb Temp Pulse Resp BP Pulse Ox O2 Del Method 97.3 F L 63 18 120/81 98 Room Air 05/18/25 06:13 05/18/25 06:13 05/18/25 06:13 05/18/25 06:13 05/18/25 06:13 05/18/25 06:13 Preop Diagnosis: Chronic cholecystitis Operation Date: 05/18/25 07:00 Proposed Procedures p Laparoscopic Cholecystectomy/ possible open 88376, K80.66(Not Applicable) - Joe Lee MD Was Beta Alcon taken within 24 hours: N/A Was Clonidine taken within 24 hours: N/A Last intake: Intake Last Liquid Date 05/17/25 Last Liquid Time 15:00 Last Solid Date 05/17/25 Last Solid Time 15:00 Social No alcohol and No tobacco Exam alert, oriented x 3, clear to auscultation bilaterally and regular rate & rhythm Airway Submandibular: within normal limits Cervical ROM: within normal limits Mallampati: Class III Dentition: full Comments: Comments: Multiple missing teeth, denies any loose Anesthetic Plan ASA status: 3 Anesthesia: General Other: History of PONV, states that she has had stomach contents, up in her ET tube multiple times. Will apply scopolamine patch NPO since 3 PM yesterday History of hypertension on lisinopril and chlorthalidone GERD, on omeprazole Will avoiding ketamine, has had hallucinations from this medication before Prior EKG showing sinus rhythm with old septal PA Echo 2021 showing EF of 60 to 65% Plan for GETA Medications/Allergies Home Medications ?Medication ?Instructions ?Recorded ?Confirmed ?Last Taken ?Type gabapentin 100 mg capsule 200 mg (2 x 100 mg) PO DAILY #180 01/28/25 05/14/25 05/17/25 Rx caps desvenlafaxine succinate 25 mg 25 mg PO DAILY #90 tabs 02/11/25 05/14/25 05/17/25 Rx tablet,extended release 24 hr (Pristiq) chlorthalidone 25 mg tablet 25 mg PO DAILY #90 tabs 02/23/25 05/14/25 05/17/25 Rx omeprazole 40 mg capsule,delayed 40 mg PO DAILY #60 caps 04/17/25 05/14/25 05/17/25 Rx release hydrocortisone 1 % topical cream 1 applic topical TID PRN skin 05/14/25 05/18/25 05/17/25 Rx irritation 10 days #28.4 grams lisinopril 10 mg tablet 10 mg PO DAILY #90 tabs 05/14/25 05/18/25 05/17/25 Rx vit C 250 mg-vit E 90 mg-zinc 40 1 tab PO BID 05/14/25 05/14/25 05/17/25 History mg-copper 1 [id number] capsule (PreserVision AREDS-2) Allergies Allergy/AdvReac Type Severity Reaction Status Date / Time ketamine Allergy Severe hallucinati Verified 05/18/25 06:12 ons venlafaxine (From Effexor) Allergy Intermediate heart rate Verified 05/18/25 06:12 hydromorphone (From Dilaudid) Allergy ADR-Vomitin Verified 05/18/25 06:12 g iodine Allergy ALGY-Anaphy Verified 05/18/25 06:12 laxis Penicillins Allergy Unknown Verified 05/18/25 06:12 [facility] Anesthesia Medical History Cholelithiasis Tam esophagus Essential hypertension GERD (gastroesophageal reflux disease) Angina at rest History of kidney stones Tooth abscess Surgical History History of hysterectomy History of lithotripsy History of knee surgery Social History Smoking and tobacco/nicotine status: never used tobacco/nicotine Alcohol intake: current Alcohol intake frequency: few times a month Substance/Drug Use: never Adopted: Yes Lives independently: Yes Data Anesthesia Cardiac Studies: Echocardiogram 08/15/22 Sestamibi Stress Test (Cardiology) 08/16/22 Cardiac Event Monitor 09/07/22
[2025-05-18] MEDS: sodium chloride 0.9% 1,000 ML 30 ML IV (06:18)
[2025-05-18] MEDS: scopolamine 1 mg PATCH 1 PATCH TRANSDERMA (06:26)
--- NOTE | 2025-05-18 06:43 | P.HP_ITS ---
Same Day Surgery H&P Indication for Procedure/HPI DATE OF PROCEDURE: May 18, 2025 CHIEF COMPLAINT/INDICATIONFOR SURGICAL PROCEDURE: Symptomatic cholelithiasis PREOP DIAGNOSIS: Chronic cholecystitis PLANNED PROCEDURE: Operation Date: 05/18/25 07:00 Proposed Procedures p Laparoscopic Cholecystectomy/ possible open 45772, K80.66(Not Applicable) - Joe Lee MD Medications/Allergies* Home Medications ?Medication ?Instructions ?Recorded ?Confirmed ?Type vit C 250 mg-vit E 90 mg-zinc 40 1 tab PO BID 05/14/25 05/14/25 History mg-copper 1 [id number] capsule (PreserVision AREDS-2) Allergies/Adverse Reactions Allergy/AdvReac Type Severity Reaction Status Date / Time ketamine Allergy Severe hallucinati Verified 05/18/25 06:12 ons venlafaxine (From Effexor) Allergy Intermediate heart rate Verified 05/18/25 0 6:12 hydromorphone (From Dilaudid) Allergy ADR-Vomitin Verified 05/18/25 06:12 g iodine Allergy ALGY-Anaphy Verified 05/18/25 06:12 laxis Penicillins Allergy Unknown Verified 05/18/25 06:12 Current Medications: Generic Name Dose Route Start Last Admin Trade Name Freq PRN Reason Stop Dose Admin Sodium Chloride 1,000 mls @ 30 mls/hr 05/18/25 06:15 05/18/25 06:18 Sodium Chloride 0.9% IV 05/19/25 06:14 30 mls/hr .Q24H HODAN Administration Pertinent History/Comorbid Conditions* Medical History (Updated 02/11/25 @ 16:22 by Lit Otero MD) Cholelithiasis Tam esophagus Essential hypertension GERD (gastroesophageal reflux disease) Angina at rest History of kidney stones Tooth abscess Surgical History (Updated 09/29/21 @ 09:05 by Naif Wagner MD) History of hysterectomy History of lithotripsy History of knee surgery Social History Smoking and tobacco/nicotine status: never used tobacco/nicotine Alcohol intake: current Alcohol intake frequency: few times a month Substance/Drug Use: never Adopted: Yes Lives independently: Yes Pertinent Exam Findings alert, oriented x 3, clear to auscultation bilaterally and regular rate & rhythm Recommendations Surgery/Procedure today Coding Level of Care Code Acute Code for Chg Fwd
[2025-05-18] MEDS: clindamycin 600 MG/50 ML PREMIX 50 MG IV (07:00)
[2025-05-18] MEDS: BUPivacaine 0.25% INJ 30 mL INJECTION (08:01)
[2025-05-18] MEDS: lidocaine-epi 1% 20 mL INJ INJECTION (08:01)
--- NOTE | 2025-05-18 08:10 | PM.OP ---
Operative Report Date of procedure: May 18, 2025 Pre-op diagnosis: Symptomatic cholelithiasis Post-op diagnosis: Same Post-op findings: Normal biliary anatomy Procedure done: Laparoscopic cholecystectomy Specimens removed/disposition: Gallbladder Surgeon: Joe Lee MD Mechanical Tech: ALONDRA OR STaff Estimated blood loss: 5 Complications: None apparent Brief History: 64-year-old female with history of gallstone disease who presented to my office for evaluation for laparoscopic cholecystectomy. After discussion we will resume benefits as documented in my preop note we decided to proceed. Procedure: Patient was brought into the OR, she was placed in a supine position. General anesthesia was given. The abdomen was prepped and draped in the usual sterile fashion. A timeout was conducted. I accessed the abdomen via a 5 mm Optiview port in the left upper quadrant. Initial pneumoperitoneum was obtained and no evidence of visceral injury during entry was noted. At 12 mm trocar was placed in the supraumbilical position under direct visualization. there were some adhesions form omentum to midline in the infraumbilical location that were left undisturbed. Additional 5 mm trocars were placed in the epigastrium right upper quadrant and right flank under direct visualization. The gallbladder was grasped from the fundus and retracted cephalad, I then grasped the infundibulum and retracted in the inferolateral direction exposing the hepatocystic triangle. The peritoneum anterior to the hepatocystic triangle was opened with electrocautery, I carried this opening in the medial and lateral direction to the edges of the liver and then on the sides of the gallbladder to allow for better exposure. With careful blunt dissection as well as electrocautery I was able to encircle the cystic duct and artery, I also elevated lower third of the gallbladder from the liver bed, thus creating a critical view of safety. The cystic duct and artery were double clipped proximally and single clipped distally and transected. The gallbladder was removed from the liver bed using electrocautery. The gallbladder was retrieved in an Endo Catch bag via the umbilical trocar site. The liver bed and clips were inspected the area was hemostatic, there was no evidence of bile leak the clips appeared to be in good position. The liver bed was irrigated and suctioned. The umbilical trocar was removed and umbilical trocar site was closed with a 0 Vicryl Jake-Maury suture passer under direct visualization. The epigastrium right upper quadrant right flank trocars were removed under direct visualization, the left upper quadrant trocar was used to evacuate the pneumoperitoneum and subsequently removed. Local anesthesia was infiltrated. Hemostasis was achieved from the trocar sites. The wounds were closed in layers using #3-0 Vicryl for the subcutaneous tissue #4 Monocryl for the skin. At the end of the procedure all counts were correct, the patient tolerated well the procedure was transferred to the PACU in stable condition.
[2025-05-18] MEDS: fentaNYL 50 mcg/mL INJ 2mL IVP (08:35)
--- NOTE | 2025-05-18 10:10 | ANE.PACU2 ---
Inpatient post-anesthesia follow up: Airway intact: Yes Vital signs: Temperature 97.2 F Pulse Rate 50 Respiratory Rate 16 Blood Pressure 123/74 Pulse Oximetry 100 Oxygen Delivery Me thod Room Air Oxygen Flow Rate 8 Fraction of Inspir ed Oxygen Hydration adequate: Yes Nausea and vomiting: No Pain level: 1 Mental status: Baseline
== END 2025-05-18 10:10 | disposition home or self-care (01) ==
PROVIDERS: PCP Family Medicine; Visit Provider Surgery
PROC: 0FT44ZZ Resection of Gallbladder, Percutaneous Endoscopic Approach (ICD-10-PCS; CPT 47562; principal; 2025-05-18 07:00)
DX: K80.10 Calculus of gallbladder with chronic cholecystitis without obstruction (principal); I10 Essential (primary) hypertension; K21.9 Gastro-esophageal reflux disease without esophagitis; I20.89 Other forms of angina pectoris; K22.70 Barrett's esophagus without dysplasia
CPT/HCPCS: 47562; 88304; A4216; J0131; J1100; J1200; J2371; J2405; J2704; J3010; J3490; J7030; J9999

== ENCOUNTER → 2025-06-02 09:44 | Outpatient (BNVA) | payer MEDICARE, MEDICAID, SELFPAY | PROVIDERS: PCP Family Medicine; Visit Provider Surgery | DX: Z98.890 Other specified postprocedural states (principal) | CPT/HCPCS: 99024 ==